=== PATIENT | female | born 1975 | race Two or more races ===

== ENCOUNTER 2019-02-09 11:27 | Inpatient (IN) | payer OTHER ==
[~2019-02-09] VITALS: Ht 170.2 cm; Wt 85.3 kg
[2019-02-09] MEDS ORDERED: GLIPIZIDE5 MG ORAL (11:33)
[2019-02-09] MEDS ORDERED: METFORMIN HCL500 M1 ORAL (11:33)
[2019-02-09] MEDS ORDERED: Morphine Sulfate 4mg/ml Inj (IV USE ONLY) IVP ONE (11:45)
--- NOTE | 2019-02-09 11:55 | Emergency Room Report ---
History of Present Illness General Chief Complaint: Generalized Weakness Source: Patient, EMS Present Illness HPI Patient presents with weakness. She is unable to ambulate since Tuesday. She was seen by her orthopedic doctor because she has metastasis to her right leg. She has severe pain there when she attempts to ambulate. It somewhat better when she is recumbent. She is unable to weight-bare. She has been able to eat but her appetite is been poor. She denies any fevers or chills. There is no melena or hematochezia. She feels occasionally nauseated. When she is attempting to ambulate localized to the right proximal fibula. She denies calf pain or edema. She feels discouraged about lack of ability to care for herself at home. Treatment at [facility]. No fevers, chills, sore throat, chest pain, palpitations, pain is rated 8/10 vomiting, diarrhea, dysuria, abdominal pain, shortness of breath, rashes, visual changes, dizziness, headache. Allergies: Coded Allergies: No Known Allergies (Unverified , 02/09/19) Patient History Past Medical History: see triage record Social History: Denies: alcohol use, drug use Social History Narrative Lives with her 23-year-old son Reviewed Nursing Documentation: PMH: Agreed; PSxH: Agreed Nursing Documentation-PMH Past Medical History: No History, Except For Hx Diabetes: Yes Hx Cancer: Yes Review of Systems All Other Systems: negative except mentioned in HPI Physical Exam Vital Signs Date Time Temp Pulse Resp B/P (MAP) Pulse Ox O2 Delivery O2 Flow Rate FiO2 02/09/19 11:27 98.6 103 16 144/76 (98) 98 Room Air Sp02 EP Interpretation: reviewed, normal General Appearance: no apparent distress, alert, GCS 15, non-toxic, other - Frail and pale Head: normocephalic Eyes: bilateral eye normal inspection, bilateral eye PERRL, bilateral eye EOMI ENT: moist mucus membranes Neck: supple Respiratory: lungs clear, normal breath sounds Cardiovascular #1: regular rate, rhythm Cardiovascular #2: 2+ radial (R), 2+ dorsalis pedis (R) Gastrointestinal: normal inspection, normal bowel sounds, non tender, no mass, non-distended Genitourinary: no CVA tenderness Musculoskeletal: back normal, other - Right lower leg tenderness also involves calf mainly right proximal fibula, Neurologic: alert, oriented x3, distal neuro normal, grossly normal Psychiatric: depressed affect Skin: no rash, other - [facility] Medical Decision Making Diagnostic Impression: Primary Impression: Hypercalcemia Additional Impressions: Elevated lactic acid level Metastatic cancer Pathologic fracture Qualified Codes: M84.563K - Pathological fracture in neoplastic disease, right fibula, subsequent encounter for fracture with nonunion ER Course Patient presents with weakness with a history of metastatic endometrial cancer with right leg pain and inability to ambulate. Differential includes bone metastasis, DVT, occult infection, electrolyte imbalance, depression amongst others. Patient evaluated with EKG, labs, x-ray of right tib-fib and chest x- ray, venous plethysmography leg. Treatment with gentle IV hydration. Also analgesics will be administered. The fact is significant. That the patient cannot ambulate consideration for admission to the hospital and transferred rehab is undertaken. EKG without injury. Chest x-ray clear. Right hip with pathologic fracture right proximal fibula. Labs with normal CBC with low H&H. CMP with elevated calcium. Lactate 2.6. Calcium and lactic acid called high. Ionized calcium ordered. NS and lasix ordered. Contact Dr. Butts for admission. Pain improved but muscle spasms of back. Toradol ordered. Social service consult ordered. Laboratory Tests Test 02/09/19 12:30 02/09/19 13:40 02/09/19 18:45 White Blood Count 8.1 K/UL (4.8-10.8) Red Blood Count 3.54 M/UL (4.20-5.40) L Hemoglobin 11.0 G/DL (12.0-16.0) L Hematocrit 32.8 % (37.0-47.0) L Mean Corpuscular Volume 93 FL (80-99) Mean Corpuscular Hemoglobin 31.0 PG (27.0-31.0) Mean Corpuscular Hemoglobin Concent 33.5 G/DL (32.0-36.0) Red Cell Distribution Width 12.1 % (11.6-14.8) Platelet Count 148 K/UL (150-450) L Mean Platelet Volume 5.6 FL (6.5-10.1) L Neutrophils (%) (Auto) % (45.0-75.0) Lymphocytes (%) (Auto) % (20.0-45.0) Monocytes (%) (Auto) % (1.0-10.0) Eosinophils (%) (Auto) % (0.0-3.0) Basophils (%) (Auto) % (0.0-2.0) Differential Total Cells Counted 100 Neutrophils % (Manual) 90 % (45-75) H Lymphocytes % (Manual) 5 % (20-45) L Monocytes % (Manual) 5 % (1-10) Eosinophils % (Manual) 0 % (0-3) Basophils % (Manual) 0 % (0-2) Band Neutrophils 0 % (0-8) Platelet Estimate Decreased L Platelet Morphology Normal Red Blood Cell Morphology Normal Prothrombin Time 10.0 SEC (9.30-11.50) Prothrombin Time INR 0.9 (0.9-1.1) PTT 23 SEC (23-33) Urine Color Pale yellow Urine Appearance Clear Urine pH 7 (4.5-8.0) Urine Specific [place] 1.010 (1.005-1.035) Urine Protein Negative (NEGATIVE) Urine Glucose (UA) Negative (NEGATIVE) Urine Ketones Negative (NEGATIVE) Urine Blood Negative (NEGATIVE) Urine Nitrite Negative (NEGATIVE) Urine Bilirubin Negative (NEGATIVE) Urine Urobilinogen Normal MG/DL (0.0-1.0) Urine Leukocyte Esterase Negative (NEGATIVE) Sodium Level 140 MMOL/L (136-145) 142 MMOL/L (136-145) Potassium Level 3.9 MMOL/L (3.5-5.1) 3.5 MMOL/L (3.5-5.1) Chloride Level 102 MMOL/L (98-107) 101 MMOL/L (98-107) Carbon Dioxide Level 30 MMOL/L (21-32) 32 MMOL/L (21-32) Anion Gap 8 mmol/L (5-15) 9 mmol/L (5-15) Blood Urea Nitrogen 20 mg/dL (7-18) H 22 mg/dL (7-18) H Creatinine 0.7 MG/DL (0.55-1.30) 0.9 MG/DL (0.55-1.30) Estimate Glomerular Filtration Rate > 60 mL/min (>60) > 60 mL/min (>60) Glucose Level 136 MG/DL (74-106) H 235 MG/DL (74-106) #H Lactic Acid Level 2.60 mmol/L (0.4-2.0) H 2.00 mmol/L (0.4-2.0) Calcium Level 13.4 MG/DL (8.5-10.1) *H 13.0 MG/DL (8.5-10.1) H Magnesium Level 1.0 MG/DL (1.8-2.4) L Total Bilirubin 0.2 MG/DL (0.2-1.0) Aspartate Amino Transferase (AST) 36 U/L (15-37) Alanine Aminotransferase (ALT) 19 U/L (12-78) Alkaline Phosphatase 104 U/L (46-116) Total Creatine Kinase 86 U/L (26-308) Troponin I 0.000 ng/mL (0.000-0.056) Pro-B-Type Natriuretic Peptide 70 pg/mL (0-125) Total Protein 8.1 G/DL (6.4-8.2) Albumin 3.3 G/DL (3.4-5.0) L Globulin 4.8 g/dL Albumin/Globulin Ratio 0.7 (1.0-2.7) L Lipase 113 U/L (73-393) Ionized Calcium (Measured) 1.37 mmol/L (1.10-1.35) H Erythrocyte Sedimentation Rate 75 MM/HR (0-20) H EKG Diagnostic Results Rate: normal Rhythm: NSR ST Segments: no acute changes Rhythm Strip Diag. Results EP Interpretation: yes Rhythm: NSR, no PVC's, no ectopy Chest X-Ray Diagnostic Results Chest X-Ray Diagnostic Results : Chest X-Ray Ordered: Yes # of Views/Limited/Complete: 1 View Indication: Other EP Interpretation: Yes Interpretation: no consolidation, no effusion, no pneumothorax, other - Poor inspiration Impression: No acute disease Electronically Signed by: Electronically signed by Jose Rafael Aguilera MD Other X-Ray Diagnostic Results Other X-Ray Diagnostic Results : X-Ray ordered: R tib fib # of Views/Limited Vs Complete: 4 View Indication: Other EP Interpretation: Yes Interpretation: no dislocation, no soft tissue swelling, other - metastatic disease fibula Impression: Other Electronically Signed by: Electronically signed by Jose Rafael Aguilera MD CT/MRI/US Diagnostic Results CT/MRI/US Diagnostic Results : Imaging Test Ordered: Venous duplex Impression No DVT Last Vital Signs Date Time Temp Pulse Resp B/P (MAP) Pulse Ox O2 Delivery O2 Flow Rate FiO2 02/09/19 17:06 98.1 78 20 134/78 99 Room Air Status: improved Disposition: ADMITTED INPATIENT Condition: Serious Jose Rafael Aguilera MD Feb 09, 2019 11:55
--- NOTE | 2019-02-09 12:45 | NUR ---
ED Nurse Note: Patient came by ambulance due to generalized muscle weakness since yesterday. Patient reports pain in lower abdomen and left leg /10. Patient reports having endometriosis cancer and started radiation therapy. VSS. Son is at bedside. Fr. 16 Cuadra catheter inserted, draining well to gravity. IV established on Right wrist 22G, patent and asymptomatic. Blood/urine collected and sent to lab.
[2019-02-09 13:06] LABS: HEMATOCRIT 32.8 % (37.0-47.0); MEAN CORPUSCULAR VOLUME 93 FL (80-99); PLATELET COUNT 148 K/UL (150-450); RED BLOOD COUNT 3.54 M/UL (4.20-5.40); RED CELL DISTRIBUTION WIDTH 12.1 % (11.6-14.8); WHITE BLOOD COUNT 8.1 K/UL (4.8-10.8)
[2019-02-09 13:20] VITALS: BP 144/76
[2019-02-09 13:22] LABS: INR 0.9 (0.9-1.1)
[2019-02-09 13:28] LABS: ALANINE AMINOTRANSFERASE 19 U/L (12-78); ALBUMIN 3.3 G/DL (3.4-5.0); ALBUMIN/GLOBULIN RATIO 0.7 (1.0-2.7); ALKALINE PHOSPHATASE 104 U/L (46-116); ANION GAP 8 mmol/L (5-15); ASPARTATE AMINO TRANSFERASE 36 U/L (15-37); BILIRUBIN,TOTAL 0.2 MG/DL (0.2-1.0); BLOOD UREA NITROGEN 20 mg/dL (7-18); CARBON DIOXIDE 30 MMOL/L (21-32); CHLORIDE 102 MMOL/L (98-107); CREATINE KINASE 86 U/L (26-308); CREATININE 0.7 MG/DL (0.55-1.30); POTASSIUM 3.9 MMOL/L (3.5-5.1); SODIUM 140 MMOL/L (136-145)
[2019-02-09 13:30] LABS: CALCIUM 13.4 MG/DL (8.5-10.1)
--- NOTE | 2019-02-09 13:41 | Diagnostic Imaging Report ---
Indication: Bilateral leg pain Technique: Grayscale and duplex images of the bilateral lower extremity veins. Comparison: none Findings: Bilaterally, grayscale and duplex images demonstrate no evidence of intraluminal thrombus. Normal phasic Doppler waveforms, demonstrating normal augmentation response and no evidence of valvular insufficiency. Normal compressibility. Impression: Negative for lower extremity deep venous thrombosis bilaterally
[2019-02-09 14:17] LABS: APPEARANCE,URINE CLEAR; BILIRUBIN, URINE NEGATIVE (NEGATIVE); COLOR,URINE PALE YELLOW; GLUCOSE, URINE (UA) NEGATIVE (NEGATIVE); KETONES,URINE NEGATIVE (NEGATIVE); LEUKOCYTE ESTERASE ,URINE NEGATIVE (NEGATIVE); NITRITE,URINE NEGATIVE (NEGATIVE); PH,URINE 7 (4.5-8.0); PROTEIN,URINE NEGATIVE (NEGATIVE); UROBILINOGEN,URINE NORMAL MG/DL (0.0-1.0)
--- NOTE | 2019-02-09 14:30 | Diagnostic Imaging Report ---
Indication: Reason For Exam: PAIN Technique: 2 views of the right tibia and fibula Comparison: none Findings: There is an osteolytic lesion of the proximal fibular shaft. This demonstrates a comminuted pathologic fracture, anteriorly displaced by about one bone width. No tibial fracture demonstrated. Impression: Positive for osteolytic lesion of the proximal fibula with pathologic fracture. Per discussion with referring physician, patient has history of metastatic carcinoma to this location
--- NOTE | 2019-02-09 14:31 | Diagnostic Imaging Report ---
Indication: Chest pain Technique: One view of the chest Comparison: none Findings: Exam is hypoventilatory, with bilateral basilar atelectatic changes. Lungs and pleural spaces are otherwise clear. The heart is upper limits of normal in size. Impression: Hypoventilatory exam with basilar atelectatic changes.
[2019-02-09] MEDS ORDERED: Ketorolac 30mg Inj IV ONE (15:30)
--- NOTE | 2019-02-09 16:19 | NUR ---
ED Nurse Note: Report given to JOSE ELIAS Sharp on 4E. Will redraw blood for LA and send out before transferring patient to floor.
--- NOTE | 2019-02-09 16:19 | NUR ---
NURSE NOTES: Report received from JOSE ELIAS Stock[place], from ED.
[2019-02-09] MEDS ORDERED: HYDROcodone/Acetamin 10/325 tab ORAL PRN (17:30)
[2019-02-09] MEDS ORDERED: HYDROcodone/Acetamin 5/325 tab ORAL PRN (17:30)
--- NOTE | 2019-02-09 18:40 | NUR ---
NURSE NOTES: Transferred pt to 212-1 in Tele. Report given to JOSE ELIAS Andrade.
--- NOTE | 2019-02-09 18:49 | NUR ---
NURSE NOTES: Rcvd pt from 4E rn Leonor Campuzano .. pt has youth nutritional monitor on, Ox4 calm and cooperative.
--- NOTE | 2019-02-09 19:07 | History and Physical ---
History of Present Illness General Date patient seen: Feb 09, 2019 Reason for Hospitalization: Hypercalcemia of malignancy Present Illness HPI This is a 43-year-old female with a past medical history of diabetes mellitus type 2, stage IV endometrial cancer with metastases to bones, liver, and diaphragm, pathologic right fibular fracture. Currently pending outpatient work -up for chemotherapy. The patient presents with worsening fatigue, and bone pain for the past week. She states that the pain is all over her body, 8 out of 10, constant. She denies any recent illnesses, fever, chills, cough, shortness of breath. She denies any recent trauma to her right leg. Patient states that she saw orthopedic surgery this past Tuesday regarding the new pathologic fracture of her right fibula. He did not recommend any casting or nonweightbearing status. The ER the patient had a temperature of 98.6 blood pressure 144/76 pulse 7884 respirations 15 saturating 90% on room air. WBC 8.1 hemoglobin 11 platelets 148. Calcium elevated at 13.4, lactate 2.6, ionized calcium 1.37. Serum creatinine 0.7, potassium 3.9. Troponin negative. Bilateral lower extremity venous Doppler negative for DVT. Chest x-ray negative. X-ray of tib-fib shows osteolytic lesion of proximal fibula likely a pathologic fracture. EKG showed normal sinus rhythm. Magnesium was low at 1.0. Allergies: Coded Allergies: No Known Allergies (Unverified , 02/09/19) Medication History Scheduled Glipizide* (Glipizide*), Unknown Dose ORAL BIDAC, (Reported) Metformin Hcl* (Metformin Hcl*), Unknown Dose ORAL TWICE A DAY, (Reported) Patient History Healthcare decision maker Resuscitation status Full code Advanced Directive on File Review of Systems Constitutional: Denies: see HPI, chills, sweats, fever, malaise, weakness, other Eye: Denies: see HPI, eye pain, blurred vision, tearing, double vision, nose pain, nose congestion, acuity changes, discharge, other ENT: Denies: see HPI, ear pain, ear discharge, nose pain, nose congestion, throat pain, throat swelling, mouth pain, hearing loss, nasal discharge, other Respiratory: Denies: see HPI, cough, orthopnea, shortness of breath, stridor, wheezing, LAWLER, sputum, other Cardiovascular: Denies: see HPI, chest pain, edema, palpitations, syncope, PND , other Gastrointestinal: Denies: see HPI, abdominal pain, constipation, diarrhea, nausea, vomiting, melena, hematemesis, other Genitourinary: Denies: see HPI, discharge, dysuria, frequency, hematuria, pain , retention, incontinence, urgency, vag bleed/dc, other Musculoskeletal: Reports: joint pain, muscle pain; Denies: see HPI, back pain, gout, joint swelling, muscle stiffness, other Skin: Denies: see HPI, rash, change in color, change in hair/nails, dryness, lesions, other Psychiatric: Denies: see HPI, prior hx, anxiety, depressed feelings, emotional problems, SI, HI, hallucinations, other Neurological: Denies: see HPI, headache, numbness, paresthesia, seizure, tingling, tremors, focal weakness, syncope, dizziness, other Endocrine: Denies: see HPI, excessive sweating, flushing, intolerance to temperature, increased thirst, increased urine, unexplained weight loss, other Hematologic/Lymphatic: Denies: see HPI, anemia, blood clots, easy bleeding, easy bruising, swollen glands, diathesis, other Physical Exam General Appearance: WD/WN, no apparent distress, alert Lines, tubes and drains: peripheral HEENT: normocephalic, atraumatic, anicteric, mucous membranes moist Neck: non-tender, normal alignment, supple, normal inspection Respiratory/Chest: chest wall non-tender, lungs clear, normal breath sounds Cardiovascular/Chest: normal peripheral pulses, normal rate, regular rhythm, no JVD Abdomen: normal bowel sounds, non tender, soft, no organomegaly, no mass Extremities: normal range of motion, other - Some tenderness to palpation of right lateral leg. No deformities seen. Trace edema bilaterally. Skin Exam: normal pigmentation, warm/dry Neurologic: special assets officer II-XII grossly normal, no motor/sensory deficits, alert, oriented x 3, responsive Lymphatic: anterior cervical - No lymphadenopathy Musculoskeletal: normal muscle bulk, no effusion Last 24 Hour Vital Signs Date Time Temp Pulse Resp B/P (MAP) Pulse Ox O2 Delivery O2 Flow Rate FiO2 02/09/19 17:06 98.1 78 20 134/78 99 Room Air 02/09/19 13:30 84 20 Room Air 02/09/19 13:20 98.6 78 15 144/76 99 Room Air 02/09/19 12:50 98.6 02/09/19 12:50 98.6 02/09/19 11:27 98.6 103 16 144/76 (98) 98 Room Air Laboratory Tests Test 02/09/19 12:30 02/09/19 13:40 White Blood Count 8.1 K/UL (4.8-10.8) Red Blood Count 3.54 M/UL (4.20-5.40) L Hemoglobin 11.0 G/DL (12.0-16.0) L Hematocrit 32.8 % (37.0-47.0) L Mean Corpuscular Volume 93 FL (80-99) Mean Corpuscular Hemoglobin 31.0 PG (27.0-31.0) Mean Corpuscular Hemoglobin Concent 33.5 G/DL (32.0-36.0) Red Cell Distribution Width 12.1 % (11.6-14.8) Platelet Count 148 K/UL (150-450) L Mean Platelet Volume 5.6 FL (6.5-10.1) L Neutrophils (%) (Auto) % (45.0-75.0) Lymphocytes (%) (Auto) % (20.0-45.0) Monocytes (%) (Auto) % (1.0-10.0) Eosinophils (%) (Auto) % (0.0-3.0) Basophils (%) (Auto) % (0.0-2.0) Differential Total Cells Counted 100 Neutrophils % (Manual) 90 % (45-75) H Lymphocytes % (Manual) 5 % (20-45) L Monocytes % (Manual) 5 % (1-10) Eosinophils % (Manual) 0 % (0-3) Basophils % (Manual) 0 % (0-2) Band Neutrophils 0 % (0-8) Platelet Estimate Decreased L Platelet Morphology Normal Red Blood Cell Morphology Normal Prothrombin Time 10.0 SEC (9.30-11.50) Prothromb Time International Ratio 0.9 (0.9-1.1) Activated Partial Thromboplast Time 23 SEC (23-33) Urine Color Pale yellow Urine Appearance Clear Urine pH 7 (4.5-8.0) Urine Specific [place] 1.010 (1.005-1.035) Urine Protein Negative (NEGATIVE) Urine Glucose (UA) Negative (NEGATIVE) Urine Ketones Negative (NEGATIVE) Urine Blood Negative (NEGATIVE) Urine Nitrite Negative (NEGATIVE) Urine Bilirubin Negative (NEGATIVE) Urine Urobilinogen Normal MG/DL (0.0-1.0) Urine Leukocyte Esterase Negative (NEGATIVE) Sodium Level 140 MMOL/L (136-145) Potassium Level 3.9 MMOL/L (3.5-5.1) Chloride Level 102 MMOL/L (98-107) Carbon Dioxide Level 30 MMOL/L (21-32) Anion Gap 8 mmol/L (5-15) Blood Urea Nitrogen 20 mg/dL (7-18) H Creatinine 0.7 MG/DL (0.55-1.30) Estimat Glomerular Filtration Rate > 60 mL/min (>60) Glucose Level 136 MG/DL (74-106) H Lactic Acid Level 2.60 mmol/L (0.4-2.0) H Calcium Level 13.4 MG/DL (8.5-10.1) *H Magnesium Level 1.0 MG/DL (1.8-2.4) L Total Bilirubin 0.2 MG/DL (0.2-1.0) Aspartate Amino Transf (AST/SGOT) 36 U/L (15-37) Alanine Aminotransferase (ALT/SGPT) 19 U/L (12-78) Alkaline Phosphatase 104 U/L (46-116) Total Creatine Kinase 86 U/L (26-308) Troponin I 0.000 ng/mL (0.000-0.056) Pro-B-Type Natriuretic Peptide 70 pg/mL (0-125) Total Protein 8.1 G/DL (6.4-8.2) Albumin 3.3 G/DL (3.4-5.0) L Globulin 4.8 g/dL Albumin/Globulin Ratio 0.7 (1.0-2.7) L Lipase 113 U/L (73-393) Ionized Calcium (Measured) 1.37 mmol/L (1.10-1.35) H Height (Feet): 5 Height (Inches): 7.00 Weight (Pounds): 188 Medications Current Medications Medications (Trade) Dose Ordered Sig/García Route PRN Reason Start Time Stop Time Status Last Admin Dose Admin Acetaminophen/ Hydrocodone Bitart ([place] ) 1 tab Q6H PRN ORAL severe pain 02/09/19 19:00 02/16/19 18:59 Acetaminophen/ Hydrocodone Bitart ([place] 5/325) 1 tab Q6H PRN ORAL pain 1-6 02/09/19 19:00 02/16/19 18:59 Calcitonin [place] (Miacalcin) 1 sprays DAILY NASAL 02/10/19 09:00 03/11/19 17:14 Dextrose (Dextrose 50%) 25 ml Q30M PRN IV Hypoglycemia 02/09/19 19:00 03/11/19 17:29 Dextrose (Dextrose 50%) 50 ml Q30M PRN IV Hypoglycemia 02/09/19 19:00 03/11/19 17:29 Heparin Sodium (Porcine) (Heparin 5000 units/ml) 5,000 units EVERY 8 HOURS SUBQ 02/09/19 22:00 03/11/19 21:59 Magnesium Sulfate 100 ml @ 100 mls/hr Q1H IVPB 02/09/19 19:15 02/09/19 23:14 UNV Sodium Chloride 1,000 ml @ 300 mls/hr Q3H20M IV 02/09/19 19:00 03/11/19 11:44 Assessment/Plan Problem List: (1) Hypercalcemia of malignancy ICD Codes: E83.52 - Hypercalcemia SNOMED: 28765281 (2) Hypercalcemia ICD Codes: E83.52 - Hypercalcemia SNOMED: 07716789 (3) Diabetes mellitus type 2 in obese ICD Codes: E11.69 - Type 2 diabetes mellitus with other specified complication ; E66.9 - Obesity, unspecified SNOMED: 75944120 (4) Metastatic cancer ICD Codes: C79.9 - Secondary malignant neoplasm of unspecified site SNOMED: 365353820 (5) Elevated lactic acid level ICD Codes: R79.89 - Other specified abnormal findings of blood chemistry SNOMED: 1224164 (6) Hypomagnesemia ICD Codes: E83.42 - Hypomagnesemia SNOMED: 013860101 (7) Pathologic fracture ICD Codes: M84.40XA - Pathological fracture, unspecified site, initial encounter for fracture SNOMED: 632879526 Qualifiers: Assessment/Plan: This is a 43-year-old female with a history of stage IV endometrial cancer presenting with hypercalcemia of malignancy. #Hypercalcemia of malignancy -Admit to telemetry -Continue to trend calcium every 8 hours -Normal saline at 300 cc an hour with a goal urine output of 100 to 150 cc/h -Lasix as needed for shortness of breath - intranasal calcitonin daily -Appreciate nephrology consultation: Dr. Polk -[place] 5 and [place] 10 for pain control Q6hr PRN, morphine IV Q3hr for breakthrough pain #Elevated lactic acid likely secondary to underlying malignancy > Outside oncologist Dr. Mcclelland >PCP Dr. Fitzgerald -Continue to trend lactate -Continue to monitor for signs and symptoms of infection. None currently. -Continue fluids as above #Pathological right fibula fracture, chronic -Follows with orthopedic surgery as outpatient -pain control as above #Hypomagnesemia -replete #Diabetes mellitus type 2 -hold home glipizide and metformin -Accu-Cheks before meals and at bedtime -Sliding scale insulin FENPPX DVTPPX: heparin sbq GI PPX: None Fluids: As above Diet: Regular Lines: none PT/OT: Pending Code status: Full Dispo: Home after resolution of above issues Reason for Continued Hospitalization: Hypercalcemia 73 minutes spent on this encounter. Discussed with RN, Patient, and nephrology. > 50% spent on counseling and care coordination. Time of note may not reflect time patient was seen. Steven Cantrell D.O. Feb 09, 2019 19:07
[2019-02-09 19:34] LABS: ANION GAP 9 mmol/L (5-15); BLOOD UREA NITROGEN 22 mg/dL (7-18); CARBON DIOXIDE 32 MMOL/L (21-32); CHLORIDE 101 MMOL/L (98-107); CREATININE 0.9 MG/DL (0.55-1.30); POTASSIUM 3.5 MMOL/L (3.5-5.1); SODIUM 142 MMOL/L (136-145)
[2019-02-09 20:00] VITALS: BP 110/63
--- NOTE | 2019-02-09 20:30 | NUR ---
NURSE NOTES: Patient c/o feeling warm and flushing. Magnesium Sulfate 1 gram running at 100cc/hour. Infusion stopped and Charge nurse made aware. Spoke with pharmacist and was told that flushing is a common and temporary reaction to Magnesium sulfate. Pharmacist recommended to lower the rate to 50cc/hour instead of 100cc/hour. Will continue to monitor.
[2019-02-09] MEDS: Heparin 5000 units/ml inj SUBQ SCH (22:00)
[2019-02-09] MEDS ORDERED: Heparin 5000 units/ml inj SUBQ SCH (22:00)
[2019-02-09] MEDS ORDERED: Pamidronate Disodium Inj 60 MG in Sodium Chloride 550 ML IVPB SCH (22:00)
[2019-02-10] VITALS: BP 124/71
[2019-02-10 00:45] LABS: ANION GAP 8 mmol/L (5-15); BLOOD UREA NITROGEN 22 mg/dL (7-18); CALCIUM 11.8 MG/DL (8.5-10.1); CARBON DIOXIDE 30 MMOL/L (21-32); CHLORIDE 103 MMOL/L (98-107); CREATININE 0.7 MG/DL (0.55-1.30); POTASSIUM 3.6 MMOL/L (3.5-5.1); SODIUM 141 MMOL/L (136-145)
--- NOTE | 2019-02-10 01:00 | NUR ---
NURSE NOTES: Magnesium sulfate running at 50cc/hour. Patient tolerated. No adverse reaction noted.
[2019-02-10 04:00] VITALS: BP 126/74
[2019-02-10] MEDS ORDERED: Pamidronate Disodium Inj 60 MG in Sodium Chloride 550 ML IVPB SCH (04:00)
[2019-02-10] MEDS: HYDROcodone/Acetamin 10/325 tab ORAL PRN ×2 (04:54→12:51)
[2019-02-10] MEDS: Heparin 5000 units/ml inj SUBQ SCH ×3 (05:21→22:41)
--- NOTE | 2019-02-10 07:30 | NUR ---
NURSE NOTES: Received report from JOSE ELIAS Bolden. Patient is resting in bed, in stable condition. No s/sx of SOB, breathing is even and unlabored. Bed is in lowest position, brakes engaged. Denies any presence of pain or discomfort at this time. Call light is kept within easy reach. Will continue to monitor patient.
[2019-02-10 07:40] LABS: BASOPHILS % (AUTO) 1.3 % (0.0-2.0); EOSINOPHILS % (AUTO) 1.5 % (0.0-3.0); HEMATOCRIT 28.2 % (37.0-47.0); HEMOGLOBIN 9.6 G/DL (12.0-16.0); LYMPHOCYTES % (AUTO) 6.6 % (20.0-45.0); MEAN CORPUSCULAR VOLUME 92 FL (80-99); MONOCYTES % (AUTO) 11.2 % (1.0-10.0); NEUTROPHILS % (AUTO) 79.5 % (45.0-75.0); PLATELET COUNT 117 K/UL (150-450); RED BLOOD COUNT 3.05 M/UL (4.20-5.40); RED CELL DISTRIBUTION WIDTH 12.4 % (11.6-14.8); WHITE BLOOD COUNT 5.1 K/UL (4.8-10.8)
[2019-02-10 08:00] VITALS: BP 111/69
[2019-02-10 08:01] LABS: ALANINE AMINOTRANSFERASE 20 U/L (12-78); ALBUMIN 2.5 G/DL (3.4-5.0); ALBUMIN/GLOBULIN RATIO 0.6 (1.0-2.7); ALKALINE PHOSPHATASE 86 U/L (46-116); ANION GAP 7 mmol/L (5-15); ASPARTATE AMINO TRANSFERASE 31 U/L (15-37); BILIRUBIN,TOTAL 0.2 MG/DL (0.2-1.0); BLOOD UREA NITROGEN 17 mg/dL (7-18); CALCIUM 11.1 MG/DL (8.5-10.1); CARBON DIOXIDE 29 MMOL/L (21-32); CHLORIDE 106 MMOL/L (98-107); CREATININE 0.6 MG/DL (0.55-1.30); POTASSIUM 3.4 MMOL/L (3.5-5.1); SODIUM 141 MMOL/L (136-145)
--- NOTE | 2019-02-10 08:35 | General Progress Note ---
Assessment/Plan Problem List: (1) Diabetes mellitus type 2 in obese ICD Codes: E11.69 - Type 2 diabetes mellitus with other specified complication ; E66.9 - Obesity, unspecified SNOMED: 25091166 (2) Hypercalcemia of malignancy ICD Codes: E83.52 - Hypercalcemia SNOMED: 11825212 (3) Hypomagnesemia ICD Codes: E83.42 - Hypomagnesemia SNOMED: 842039379 (4) Metastatic cancer ICD Codes: C79.9 - Secondary malignant neoplasm of unspecified site SNOMED: 835735989 (5) Pathologic fracture ICD Codes: M84.40XA - Pathological fracture, unspecified site, initial encounter for fracture SNOMED: 999412607 Qualifiers: Qualified Codes: M84.563K - Pathological fracture in neoplastic disease, right fibula, subsequent encounter for fracture with nonunion (6) Elevated lactic acid level ICD Codes: R79.89 - Other specified abnormal findings of blood chemistry SNOMED: 3175500 (7) Hypercalcemia ICD Codes: E83.52 - Hypercalcemia SNOMED: 42361938 Status: stable Assessment/Plan: This is a 43-year-old female with a history of stage IV endometrial cancer presenting with hypercalcemia of malignancy. #Hypercalcemia of malignancy -Admit to telemetry -Continue to trend calcium every 8 hours -Normal saline at 300 cc an hour with a goal urine output of 100 to 150 cc/h -Lasix as needed for shortness of breath - intranasal calcitonin daily -Appreciate nephrology consultation: Dr. Polk. S/p Aredia 60 mg on 02/09, will give another 30 mg today 01/21 -[place] 5 and [place] 10 for pain control Q6hr PRN, morphine IV Q3hr for breakthrough pain -Heme/onc consult with DR. Wells #Elevated lactic acid likely secondary to underlying malignancy > Outside oncologist Dr. Mcclelland >PCP Dr. Fitzgerald -Continue to trend lactate -Continue to monitor for signs and symptoms of infection. None currently. -Continue fluids as above #Pathological right fibula fracture, chronic -Follows with orthopedic surgery as outpatient. Dr. Guy. -Obtain ortho consult as she is non weight baring now -pain control as above #Hypomagnesemia -replete #Diabetes mellitus type 2 -hold home glipizide and metformin -Accu-Cheks before meals and at bedtime -Sliding scale insulin FENPPX DVTPPX: heparin sbq GI PPX: None Fluids: As above Diet: Regular Lines: none PT/OT: Pending Code status: Full Dispo: Home after resolution of above issues Reason for Continued Hospitalization: Hypercalcemia 40 minutes spent on this encounter. Discussed with RN, Patient, and nephrology. > 50% spent on counseling and care coordination. Time of note may not reflect time patient was seen. Subjective Date patient seen: Feb 10, 2019 Constitutional: Reports: no symptoms, chills, diaphoresis, fever, malaise, weakness, other HEENT: Denies: no symptoms, eye pain, blurred vision, tearing, double vision, ear pain, ear discharge, nose pain, nose congestion, throat pain, throat swelling, mouth pain, mouth swelling, other Cardiovascular: Denies: no symptoms, chest pain, edema, irregular heart rate, lightheadedness, palpitations, syncope, other Respiratory: Denies: no symptoms, cough, orthopnea, shortness of breath, SOB with excertion, SOB at rest, sputum, stridor, wheezing, other Gastrointestinal/Abdominal: Denies: no symptoms, abdomen distended, abdominal pain, black stools, tarry stools, blood in stool, constipated, diarrhea, difficulty swallowing, nausea, poor appetite, poor fluid intake, rectal bleeding , vomiting, other Genitourinary: Denies: no symptoms, burning, discharge, frequency, flank pain, hematuria, incontinence, pain, urgency, other Neurologic/Psychiatric: Reports: no symptoms, anxiety, depressed, emotional problems, headache, numbness, paresthesia, pre-existing deficit, seizure, tingling, tremors, weakness, other Endocrine: Denies: no symptoms, excessive sweating, flushing, intolerance to cold, intolerance to heat, increased hunger, increased thirst, increased urine, unexplained weight gain, unexplained weight loss, other Hematologic/Lymphatic: Denies: no symptoms, anemia, easy bleeding, easy bruising, other Allergies: Coded Allergies: No Known Allergies (Unverified , 02/09/19) Subjective seen and examined at bedside. alert and oriented x3 Has pain in the right leg. Says saw ortho Dr. Guy at [facility] who offered no intervention for her metastatic disease to the right leg. She has been unable to bear weight since 4 days prior to admission She is being treated for hypercalcemia Objective Last 24 Hour Vital Signs Date Time Temp Pulse Resp B/P (MAP) Pulse Ox O2 Delivery O2 Flow Rate FiO2 02/10/19 04:00 97.5 86 16 126/74 (91) 96 02/10/19 04:00 80 02/10/19 00:00 78 02/10/19 00:00 97.7 82 16 124/71 (88) 96 02/09/19 21:00 Room Air 02/09/19 20:00 Room Air 02/09/19 20:00 90 02/09/19 20:00 98.9 87 19 110/63 (79) 97 02/09/19 17:06 98.1 78 20 134/78 99 Room Air 02/09/19 13:30 84 20 Room Air 02/09/19 13:20 98.6 78 15 144/76 99 Room Air 02/09/19 12:50 98.6 02/09/19 12:50 98.6 02/09/19 11:27 98.6 103 16 144/76 (98) 98 Room Air Intake and Output 02/09/19 02/10/19 19:00 07:00 Intake Total 1000 ml Output Total 2600 ml 1400 ml Balance -1600 ml -1400 ml Intake IV Total 1000 ml Output Urine Total 2600 ml 1400 ml Laboratory Tests 02/09/19 12:30: White Blood Count 8.1, Red Blood Count 3.54L, Hemoglobin 11.0L, Hematocrit 32.8L , Mean Corpuscular Volume 93, Mean Corpuscular Hemoglobin 31.0, Mean Corpuscular Hemoglobin Concent 33.5, Red Cell Distribution Width 12.1, Platelet Count 148L, Mean Platelet Volume 5.6L, Neutrophils (%) (Auto) , Lymphocytes (%) (Auto) , Monocytes (%) (Auto) , Eosinophils (%) (Auto) , Basophils (%) (Auto) , Differential Total Cells Counted 100, Neutrophils % (Manual) 90H, Lymphocytes % (Manual) 5L, Monocytes % (Manual) 5, Eosinophils % (Manual) 0, Basophils % ( Manual) 0, Band Neutrophils 0, Platelet Estimate DecreasedL, Platelet Morphology Normal, Red Blood Cell Morphology Normal, Prothrombin Time 10.0, Prothromb Time International Ratio 0.9, Activated Partial Thromboplast Time 23, Urine Color Pale yellow, Urine Appearance Clear, Urine pH 7, Urine Specific [place] 1.010, Urine Protein Negative, Urine Glucose (UA) Negative, Urine Ketones Negative, Urine Blood Negative, Urine Nitrite Negative, Urine Bilirubin Negative, Urine Urobilinogen Normal, Urine Leukocyte Esterase Negative, Sodium Level 140, Potassium Level 3.9, Chloride Level 102, Carbon Dioxide Level 30, Anion Gap 8, Blood Urea Nitrogen 20H, Creatinine 0.7, Estimat Glomerular Filtration Rate > 60, Glucose Level 136H, Lactic Acid Level 2.60H, Calcium Level 13.4*H, Magnesium Level 1.0L, Total Bilirubin 0.2, Aspartate Amino Transf (AST/SGOT) 36, Alanine Aminotransferase (ALT/SGPT) 19, Alkaline Phosphatase 104 , Total Creatine Kinase 86, Troponin I 0.000, Pro-B-Type Natriuretic Peptide 70 , Total Protein 8.1, Albumin 3.3L, Globulin 4.8, Albumin/Globulin Ratio 0.7L, Lipase 113 02/09/19 13:40: Ionized Calcium (Measured) 1.37H 02/09/19 18:45: Sodium Level 142, Potassium Level 3.5, Chloride Level 101, Carbon Dioxide Level 32, Anion Gap 9, Blood Urea Nitrogen 22H, Creatinine 0.9, Estimat Glomerular Filtration Rate > 60, Glucose Level 235#H, Lactic Acid Level 2.00, Calcium Level 13.0H, Erythrocyte Sedimentation Rate 75H 02/10/19 00:13: Sodium Level 141, Potassium Level 3.6, Chloride Level 103, Carbon Dioxide Level 30, Anion Gap 8, Blood Urea Nitrogen 22H, Creatinine 0.7, Estimat Glomerular Filtration Rate > 60, Glucose Level 148H, Calcium Level 11.8H 02/10/19 07:22: White Blood Count 5.1, Red Blood Count 3.05L, Hemoglobin 9.6L, Hematocrit 28.2L , Mean Corpuscular Volume 92, Mean Corpuscular Hemoglobin 31.5H, Mean Corpuscular Hemoglobin Concent 34.1, Red Cell Distribution Width 12.4, Platelet Count 117L, Mean Platelet Volume 5.0L, Neutrophils (%) (Auto) 79.5H, Lymphocytes (%) (Auto) 6.6L, Monocytes (%) (Auto) 11.2H, Eosinophils (%) (Auto) 1.5, Basophils (%) (Auto) 1.3, Sodium Level 141, Potassium Level 3.4L, Chloride Level 106, Carbon Dioxide Level 29, Anion Gap 7, Blood Urea Nitrogen 17, Creatinine 0.6, Estimat Glomerular Filtration Rate > 60, Glucose Level 157H, Uric Acid 5.4, Calcium Level 11.1H, Phosphorus Level 3.0, Magnesium Level 1.7L, Total Bilirubin 0.2, Aspartate Amino Transf (AST/SGOT) 31, Alanine Aminotransferase (ALT/SGPT) 20, Alkaline Phosphatase 86, C-Reactive Protein, Quantitative 5.0H, Pro-B-Type Natriuretic Peptide 120, Total Protein 6.4, Albumin 2.5L, Globulin 3.9, Albumin/Globulin Ratio 0.6L, Thyroid Stimulating Hormone (TSH) 1.271 Height (Feet): 5 Height (Inches): 7.00 Weight (Pounds): 188 Objective General Appearance: WD/WN, no apparent distress, alert Lines, tubes and drains: peripheral HEENT: normocephalic, atraumatic, anicteric, mucous membranes moist Neck: non-tender, normal alignment, supple, normal inspection Respiratory/Chest: chest wall non-tender, lungs clear, normal breath sounds Cardiovascular/Chest: normal peripheral pulses, normal rate, regular rhythm, no JVD Abdomen: normal bowel sounds, non tender, soft, no organomegaly, no mass Extremities: normal range of motion, other - Some tenderness to palpation of right lateral leg. No deformities seen. Trace edema bilaterally. Skin Exam: normal pigmentation, warm/dry Neurologic: sales developer II-XII grossly normal, no motor/sensory deficits, alert, oriented x 3, responsive Lymphatic: anterior cervical - No lymphadenopathy Musculoskeletal: normal muscle bulk, no effusion Micheal Rahman M.D. Feb 10, 2019 08:35
[2019-02-10] MEDS ORDERED: Pamidronate Disodium Inj 30 MG in Sodium Chloride 550 ML IVPB ONE (11:00)
[2019-02-10] MEDS: NovoLOG Insulin Flexpen SUBQ SCH ×3 (11:30→20:58)
--- NOTE | 2019-02-10 11:45 | Consultation ---
History of Present Illness General Chief Complaint: Generalized Weakness Present Illness Allergies: Coded Allergies: No Known Allergies (Unverified , 02/09/19) Medication History Scheduled Glipizide* (Glipizide*), Unknown Dose ORAL BIDAC, (Reported) Metformin Hcl* (Metformin Hcl*), Unknown Dose ORAL TWICE A DAY, (Reported) Patient History Healthcare decision maker Resuscitation status Full Code Advanced Directive on File Physical Exam Last 24 Hour Vital Signs Date Time Temp Pulse Resp B/P (MAP) Pulse Ox O2 Delivery O2 Flow Rate FiO2 02/10/19 09:00 Room Air 02/10/19 08:00 98.2 80 18 111/69 (83) 100 02/10/19 04:00 97.5 86 16 126/74 (91) 96 02/10/19 04:00 80 02/10/19 00:00 78 02/10/19 00:00 97.7 82 16 124/71 (88) 96 02/09/19 21:00 Room Air 02/09/19 20:00 Room Air 02/09/19 20:00 90 02/09/19 20:00 98.9 87 19 110/63 (79) 97 02/09/19 17:06 98.1 78 20 134/78 99 Room Air 02/09/19 13:30 84 20 Room Air 02/09/19 13:20 98.6 78 15 144/76 99 Room Air 02/09/19 12:50 98.6 02/09/19 12:50 98.6 Intake and Output 02/09/19 02/10/19 19:00 07:00 Intake Total 1000 ml Output Total 2600 ml 1400 ml Balance -1600 ml -1400 ml IV Total 1000 ml Output Urine Total 2600 ml 1400 ml Laboratory Tests Test 02/09/19 12:30 02/09/19 13:40 02/09/19 18:45 02/10/19 00:13 White Blood Count 8.1 K/UL (4.8-10.8) Red Blood Count 3.54 M/UL (4.20-5.40) L Hemoglobin 11.0 G/DL (12.0-16.0) L Hematocrit 32.8 % (37.0-47.0) L Mean Corpuscular Volume 93 FL (80-99) Mean Corpuscular Hemoglobin 31.0 PG (27.0-31.0) Mean Corpuscular Hemoglobin Concent 33.5 G/DL (32.0-36.0) Red Cell Distribution Width 12.1 % (11.6-14.8) Platelet Count 148 K/UL (150-450) L Mean Platelet Volume 5.6 FL (6.5-10.1) L Neutrophils (%) (Auto) % (45.0-75.0) Lymphocytes (%) (Auto) % (20.0-45.0) Monocytes (%) (Auto) % (1.0-10.0) Eosinophils (%) (Auto) % (0.0-3.0) Basophils (%) (Auto) % (0.0-2.0) Differential Total Cells Counted 100 Neutrophils % (Manual) 90 % (45-75) H Lymphocytes % (Manual) 5 % (20-45) L Monocytes % (Manual) 5 % (1-10) Eosinophils % (Manual) 0 % (0-3) Basophils % (Manual) 0 % (0-2) Band Neutrophils 0 % (0-8) Platelet Estimate Decreased L Platelet Morphology Normal Red Blood Cell Morphology Normal Prothrombin Time 10.0 SEC (9.30-11.50) Prothromb Time International Ratio 0.9 (0.9-1.1) Activated Partial Thromboplast Time 23 SEC (23-33) Urine Color Pale yellow Urine Appearance Clear Urine pH 7 (4.5-8.0) Urine Specific [place] 1.010 (1.005-1.035) Urine Protein Negative (NEGATIVE) Urine Glucose (UA) Negative (NEGATIVE) Urine Ketones Negative (NEGATIVE) Urine Blood Negative (NEGATIVE) Urine Nitrite Negative (NEGATIVE) Urine Bilirubin Negative (NEGATIVE) Urine Urobilinogen Normal MG/DL (0.0-1.0) Urine Leukocyte Esterase Negative (NEGATIVE) Sodium Level 140 MMOL/L (136-145) 142 MMOL/L (136-145) 141 MMOL/L (136-145) Potassium Level 3.9 MMOL/L (3.5-5.1) 3.5 MMOL/L (3.5-5.1) 3.6 MMOL/L (3.5-5.1) Chloride Level 102 MMOL/L (98-107) 101 MMOL/L (98-107) 103 MMOL/L (98-107) Carbon Dioxide Level 30 MMOL/L (21-32) 32 MMOL/L (21-32) 30 MMOL/L (21-32) Anion Gap 8 mmol/L (5-15) 9 mmol/L (5-15) 8 mmol/L (5-15) Blood Urea Nitrogen 20 mg/dL (7-18) H 22 mg/dL (7-18) H 22 mg/dL (7-18) H Creatinine 0.7 MG/DL (0.55-1.30) 0.9 MG/DL (0.55-1.30) 0.7 MG/DL (0.55-1.30) Estimat Glomerular Filtration Rate > 60 mL/min (>60) > 60 mL/min (>60) > 60 mL/min (>60) Glucose Level 136 MG/DL (74-106) H 235 MG/DL (74-106) #H 148 MG/DL (74-106) H Lactic Acid Level 2.60 mmol/L (0.4-2.0) H 2.00 mmol/L (0.4-2.0) Calcium Level 13.4 MG/DL (8.5-10.1) *H 13.0 MG/DL (8.5-10.1) H 11.8 MG/DL (8.5-10.1) H Magnesium Level 1.0 MG/DL (1.8-2.4) L Total Bilirubin 0.2 MG/DL (0.2-1.0) Aspartate Amino Transf (AST/SGOT) 36 U/L (15-37) Alanine Aminotransferase (ALT/SGPT) 19 U/L (12-78) Alkaline Phosphatase 104 U/L (46-116) Total Creatine Kinase 86 U/L (26-308) Troponin I 0.000 ng/mL (0.000-0.056) Pro-B-Type Natriuretic Peptide 70 pg/mL (0-125) Total Protein 8.1 G/DL (6.4-8.2) Albumin 3.3 G/DL (3.4-5.0) L Globulin 4.8 g/dL Albumin/Globulin Ratio 0.7 (1.0-2.7) L Lipase 113 U/L (73-393) Ionized Calcium (Measured) 1.37 mmol/L (1.10-1.35) H Erythrocyte Sedimentation Rate 75 MM/HR (0-20) H Test 02/10/19 07:22 White Blood Count 5.1 K/UL (4.8-10.8) Red Blood Count 3.05 M/UL (4.20-5.40) L Hemoglobin 9.6 G/DL (12.0-16.0) L Hematocrit 28.2 % (37.0-47.0) L Mean Corpuscular Volume 92 FL (80-99) Mean Corpuscular Hemoglobin 31.5 PG (27.0-31.0) H Mean Corpuscular Hemoglobin Concent 34.1 G/DL (32.0-36.0) Red Cell Distribution Width 12.4 % (11.6-14.8) Platelet Count 117 K/UL (150-450) L Mean Platelet Volume 5.0 FL (6.5-10.1) L Neutrophils (%) (Auto) 79.5 % (45.0-75.0) H Lymphocytes (%) (Auto) 6.6 % (20.0-45.0) L Monocytes (%) (Auto) 11.2 % (1.0-10.0) H Eosinophils (%) (Auto) 1.5 % (0.0-3.0) Basophils (%) (Auto) 1.3 % (0.0-2.0) Sodium Level 141 MMOL/L (136-145) Potassium Level 3.4 MMOL/L (3.5-5.1) L Chloride Level 106 MMOL/L (98-107) Carbon Dioxide Level 29 MMOL/L (21-32) Anion Gap 7 mmol/L (5-15) Blood Urea Nitrogen 17 mg/dL (7-18) Creatinine 0.6 MG/DL (0.55-1.30) Estimat Glomerular Filtration Rate > 60 mL/min (>60) Glucose Level 157 MG/DL (74-106) H Hemoglobin A1c 6.1 % (4.3-6.0) H Uric Acid 5.4 MG/DL (2.6-7.2) Calcium Level 11.1 MG/DL (8.5-10.1) H Phosphorus Level 3.0 MG/DL (2.5-4.9) Magnesium Level 1.7 MG/DL (1.8-2.4) L Total Bilirubin 0.2 MG/DL (0.2-1.0) Aspartate Amino Transf (AST/SGOT) 31 U/L (15-37) Alanine Aminotransferase (ALT/SGPT) 20 U/L (12-78) Alkaline Phosphatase 86 U/L (46-116) C-Reactive Protein, Quantitative 5.0 mg/dL (0.00-0.90) H Pro-B-Type Natriuretic Peptide 120 pg/mL (0-125) Total Protein 6.4 G/DL (6.4-8.2) Albumin 2.5 G/DL (3.4-5.0) L Globulin 3.9 g/dL Albumin/Globulin Ratio 0.6 (1.0-2.7) L Thyroid Stimulating Hormone (TSH) 1.271 uiU/mL (0.358-3.740) Height (Feet): 5 Height (Inches): 7.00 Weight (Pounds): 188 Medications Current Medications Medications (Trade) Dose Ordered Sig/García Route PRN Reason Start Time Stop Time Status Last Admin Dose Admin Acetaminophen/ Hydrocodone Bitart ([place] 10/325) 1 tab Q6H PRN ORAL severe pain 02/09/19 19:00 02/16/19 18:59 02/10/19 04:54 Acetaminophen/ Hydrocodone Bitart ([place] 5/325) 1 tab Q6H PRN ORAL pain 1-6 02/09/19 19:00 02/16/19 18:59 Calcitonin [place] (Miacalcin) 1 sprays DAILY NASAL 02/10/19 09:00 03/11/19 17:14 02/10/19 09:25 Dextrose (Dextrose 50%) 25 ml Q30M PRN IV Hypoglycemia 02/09/19 19:00 03/11/19 17:29 Dextrose (Dextrose 50%) 50 ml Q30M PRN IV Hypoglycemia 02/09/19 19:00 03/11/19 17:29 Heparin Sodium (Porcine) (Heparin 5000 units/ml) 5,000 units EVERY 8 HOURS SUBQ 02/09/19 22:00 03/11/19 21:59 02/10/19 05:21 Insulin Aspart (NovoLOG) BEFORE MEALS AND HS SUBQ 02/10/19 11:30 03/12/19 11:29 Morphine Sulfate (Morphine Sulfate) 2 mg Q4H PRN IVP breakthrough pain 02/09/19 19:15 02/16/19 19:14 Pamidronate Disodium 30 mg/ Sodium Chloride 550 ml @ 137.5 mls/ hr ONCE ONCE IVPB 02/10/19 11:00 02/10/19 14:59 Potassium Chloride (K-Dur) 40 meq TWICE A DAY ORAL 02/10/19 09:30 03/12/19 09:29 02/10/19 10:12 Sodium Chloride 1,000 ml @ 150 mls/hr Q6H40M IV 02/10/19 08:45 03/12/19 08:44 02/10/19 09:05 Assessment/Plan Assessment/Plan: Hematology Consult REQ MD: Josiah Nguyễn DOS: Feb 10, 2019 Reason for Hospitalization: Hypercalcemia of malignancy RFC: Hypercalcemia, ANemia, Stage IV endometrial ca HPI 43-year-old female with a past medical history of diabetes mellitus type 2, stage IV endometrial cancer with metastases to bones, liver, and diaphragm, pathologic right fibular fracture. Currently pending outpatient work-up for chemotherapy (SHE IS SEEN BY DR. Fraga at [facility]). The patient presents with worsening fatigue, and bone pain for the past week. She states that the pain is all over her body, 8 out of 10, constant. She denies any recent illnesses, fever, chills, cough, shortness of breath. She denies any recent trauma to her right leg. Patient states that she saw orthopedic surgery this past Tuesday regarding the new pathologic fracture of her right fibula. He did not recommend any casting or nonweightbearing status. The ER the patient had a temperature of 98.6 blood pressure 144/76 pulse 7884 respirations 15 saturating 90% on room air. WBC 8.1 hemoglobin 11 platelets 148. Calcium elevated at 13.4, lactate 2.6, ionized calcium 1.37. Serum creatinine 0.7, potassium 3.9. Troponin negative. Bilateral lower extremity venous Doppler negative for DVT. Chest x-ray negative. X-ray of tib-fib shows osteolytic lesion of proximal fibula likely a pathologic fracture. EKG showed normal sinus rhythm. Magnesium was low at 1.0. Heme was consulted for eval. Allergies: No Known Allergies (Unverified , 02/09/19) Medication History Scheduled Glipizide* (Glipizide*), Unknown Dose ORAL BIDAC, (Reported) Metformin Hcl* (Metformin Hcl*), Unknown Dose ORAL TWICE A DAY, (Reported) Patient History Healthcare decision maker Resuscitation status Full code Advanced Directive on File ROS General: Denies fatigue, fever, chills, weight loss; + weight gain as above HENT: Denies oral sores, neck masses, nasal d/c, hearing problems Vison: Denies change in vision, eye pain, redness, discharge Cardiac: As above Pulmonary: As above GI: Denies heart burn, swallowing difficulty, abdominal pain, diarrhea, constipation : As per HPI Neuro: Denies seizure, weakness, numbness Endo: Denies heat/cold intolerance, weight changes, polyuria, polydipsia Heme/Onc: Denies unusual bleeding, bruising, clotting Ext: ttp on the right lateral leg++ PE: Vitals: reviewed General Appearance: NAD HEENT: normocephalic, atraumatic Neck: non-tender, normal alignment Respiratory/Chest: normal breath sounds bilaterally Cardiovascular/Chest: normal peripheral pulses, normal rate Abdomen: normal bowel sounds, soft, nontender Extremities: normal range of motion ++ ttp on right lat leg Labs: noted Imaging: reviewed Assessment/Plan: # Stage IV endometrial cancer presenting with hypercalcemia of malignancy. BRCA --, with recurrence of disease --> recommend continued f/u with Dr. Fraga at [facility] --> was to continue on rx, had a history of endometrial ca s/p hysterectomy and now with reucrrence, with involvement of skeletal mets, and is to get chemotherapy+radiation in the near future --> recommend ortho eval --> ca125 has been ordered # Hypercalcemia of malignancy --> Continue to trend calcium every 8 hours --> Normal saline at 300 cc an hour with a goal urine output of 100 to 150 cc/h --> intranasal calcitonin daily --> per renal recs --> pamidronate as needed prn # Anemia of chronic disease (or of iron deficiency) due to underlying chronic medical issues, multifactorial --> Anemia workup has been ordered, rule out gi bleed --> No evidence of hemolysis is noted, peripheral smear has been reviewed. --> Hgb goal >7. Transfuse prn. --> Epogen or iron at this time is not particularly indicated --> Medications have been reviewed --> low threshold for gi evaluation in case has occult + # Thrombocytopenia - potential causes multifactorial, evaluate liver and viral etiologies to begin, likely in this case is due to malignancy --> Hep panel and HIV ordered --> US abd to evaluate for cirrhosis and hsm ordered --> Peripheral smear ordered to evaluate for blasts /schistocytes --> abx and other meds have been reviewed --> ok for ppx if plt >50k w/ either heparin or lovenox # Elevated lactic acid likely secondary to underlying malignancy --> PCP Dr. Fitzgerald --> Continue to trend lactate --> consider abx if any evidence of infection # Pathological right fibula fracture, chronic --> Follows with orthopedic surgery as outpatient --> pain control as above --> may need ortho inhouse # Hypomagnesemia --> per renal # Diabetes mellitus type 2 # DVTPPX: heparin sbq The timing of this note does not necessarily reflect the time of the patient was seen. Greatly appreciate consultation. Robbi Gallardo MD Feb 10, 2019 11:45
[2019-02-10 12:00] VITALS: BP 130/69
--- NOTE | 2019-02-10 12:34 | Consultation ---
Consult Note Consult Note I was asked to eval and assist with HyperCalcemia Patient presents with weakness. She is unable to ambulate since Tuesday. She was seen by her orthopedic doctor because she has metastasis to her right leg. She has severe pain there when she attempts to ambulate. It somewhat better when she is recumbent. She is unable to weight-bear. She has been able to eat but her appetite is been poor. She denies any fevers or chills. There is no melena or hematochezia. She feels occasionally nauseated. Treatment at [facility]. No Known Allergies (Unverified , 02/09/19) Social History Narrative Lives with her 23-year-old son Past Medical History: No History, Except For Hx Diabetes: Yes Hx Cancer: Yes obese meds: Metformin and Glipizide Assessment/Plan Hypercalcemia, due to bone mets Pathologic Fx DM II Abnormal Lytes Anemia HypoAlbuminemia Hydrate Aredia total 90mg Calcitonin monitor Ca , Phos , Mag , K Iron panel Per orders Derick Polk MD Feb 10, 2019 12:34
[2019-02-10] MEDS: Docusate 100mg cap ORAL SCH ×2 (12:43→17:50)
--- NOTE | 2019-02-10 14:30 | NUR ---
NURSE NOTES: Patient on heparin 5,000 units SQ Q8HR, patient's platelet level today is noted at 117,000. Patient's platelet level yesterday noted at 148,000. Left starks is noted with one bruise. Contacted and informed Dr. Gallardo of assessment and inquired if they would like to set administration parameters for Heparin 5,[address] Gallardo acknowledged and provided parameters. Per Dr. Gallardo administer Heparin 5,000 units SQ Q8HR if platelet level is greater than 75,000. Orders entered, noted, and carried out. Will continue to monitor patient.
[2019-02-10 16:00] VITALS: BP 112/65
[2019-02-10] MEDS ORDERED: Tubing IV Secondary IV ONE ×2 (16:29→16:30)
[2019-02-10] MEDS ORDERED: NS 275ml ONE (16:29)
--- NOTE | 2019-02-10 17:45 | NUR ---
NURSE NOTES: Patient had x 1 clear 50 ml emesis, patient states is nauseated. Noted not PRN anti-emetic medications. Patient also states Norc 10/325 mg feels too strong for her at this time. Patient noted with no Tylenol PRN for mild pain. Called and reported situation to Dr. Rahman. Dr. Rahman acknowledged and ordered Zofran 4mg IV Q4HR PRN for nausea/vomiting and Tylenol 650 mg PO Q4HR PRN for pain. Orders entered, noted, and carried out. Will continue to monitor patient.
--- NOTE | 2019-02-10 19:20 | NUR ---
HAND-OFF: Report given to JOSE ELIAS Bolden.
--- NOTE | 2019-02-10 19:20 | NUR ---
NURSE NOTES: Report given to JOSE ELIAS Jurado. Patient awake and talkative. In no acute distress noted. Breathing even and unlabored. HOB elevated. Bed in lowest position. Call lights within reach. Will continue plan of care.
[2019-02-10 20:00] VITALS: BP 121/71
[2019-02-11] VITALS: BP 131/78
[2019-02-11] MEDS: Morphine Sulfate 2mg/ml Inj(IV/IM USE ONLY) IVP PRN ×3 (01:19→23:14)
[2019-02-11 04:00] VITALS: BP 131/79
[2019-02-11] MEDS: NovoLOG Insulin Flexpen SUBQ SCH ×4 (06:05→22:46)
[2019-02-11] MEDS: Heparin 5000 units/ml inj SUBQ SCH ×3 (06:37→21:28)
--- NOTE | 2019-02-11 07:41 | NUR ---
NURSE NOTES: Received report from Kimi/RN, Patient is awake , eating breakfast on bed. A/O x4. On room air, breathing even and unlabored. No acute distress/SOB noted at this time. Able to make needs known. IV site patent, no bleeding or infiltration noted. Cuadra draining well to gravity. Encourage to use call light when needed. Bed in low position and locked, bed alarm engaged, side-rails up x3. Call light within reach. Will continue plan of care.
--- NOTE | 2019-02-11 07:41 | NUR ---
HAND-OFF: Report given to JOSE ELIAS Freitas. Plan of care endorsed.
[2019-02-11 07:45] LABS: HEMATOCRIT 27.3 % (37.0-47.0); HEMOGLOBIN 9.3 G/DL (12.0-16.0); MEAN CORPUSCULAR VOLUME 92 FL (80-99); PLATELET COUNT 110 K/UL (150-450); RED BLOOD COUNT 2.97 M/UL (4.20-5.40); RED CELL DISTRIBUTION WIDTH 11.8 % (11.6-14.8)
[2019-02-11 08:00] VITALS: BP 137/77
[2019-02-11 08:42] LABS: ALANINE AMINOTRANSFERASE 18 U/L (12-78); ALBUMIN 2.5 G/DL (3.4-5.0); ALBUMIN/GLOBULIN RATIO 0.6 (1.0-2.7); ALKALINE PHOSPHATASE 89 U/L (46-116); ANION GAP 10 mmol/L (5-15); ASPARTATE AMINO TRANSFERASE 40 U/L (15-37); BILIRUBIN,TOTAL 0.3 MG/DL (0.2-1.0); BLOOD UREA NITROGEN 11 mg/dL (7-18); CALCIUM 11.6 MG/DL (8.5-10.1); CARBON DIOXIDE 28 MMOL/L (21-32); CHLORIDE 98 MMOL/L (98-107); CREATININE 0.6 MG/DL (0.55-1.30); FERRITIN 337 NG/ML (8-388); PHOSPHORUS 3.1 MG/DL (2.5-4.9); POTASSIUM 3.4 MMOL/L (3.5-5.1); SODIUM 136 MMOL/L (136-145)
[2019-02-11 08:48] LABS: CREATINE KINASE 72 U/L (26-308); GAMMA GLUTAMYL TRANSPEPTIDASE 47 U/L (5-85)
[2019-02-11] MEDS: Docusate 100mg cap ORAL SCH ×3 (09:04→17:10)
[2019-02-11 09:20] LABS: % IRON SATURATION 19 % (15-50); IRON 42 ug/dL (50-175); TOTAL IRON BINDING CAPACITY 226 ug/dL (250-450)
[2019-02-11] MEDS: Phospha 250 Neutral tab ORAL SCH ×3 (10:18→17:10)
--- NOTE | 2019-02-11 10:19 | General Progress Note ---
Assessment/Plan Problem List: (1) Diabetes mellitus type 2 in obese ICD Codes: E11.69 - Type 2 diabetes mellitus with other specified complication ; E66.9 - Obesity, unspecified SNOMED: 19327008 (2) Hypercalcemia of malignancy ICD Codes: E83.52 - Hypercalcemia SNOMED: 29396789 (3) Hypomagnesemia ICD Codes: E83.42 - Hypomagnesemia SNOMED: 439832579 (4) Metastatic cancer ICD Codes: C79.9 - Secondary malignant neoplasm of unspecified site SNOMED: 915116301 (5) Pathologic fracture ICD Codes: M84.40XA - Pathological fracture, unspecified site, initial encounter for fracture SNOMED: 341712368 Qualifiers: Qualified Codes: M84.563K - Pathological fracture in neoplastic disease, right fibula, subsequent encounter for fracture with nonunion (6) Elevated lactic acid level ICD Codes: R79.89 - Other specified abnormal findings of blood chemistry SNOMED: 2810899 (7) Hypercalcemia ICD Codes: E83.52 - Hypercalcemia SNOMED: 96215843 Status: stable, not improved, unchanged Assessment/Plan: This is a 43-year-old female with a history of stage IV endometrial cancer presenting with hypercalcemia of malignancy. #Hypercalcemia of malignancy -telemetry -Continue to trend calcium every 8 hours -Normal saline at 300 cc an hour with a goal urine output of 100 to 150 cc/h -Lasix - intranasal calcitonin daily -Appreciate nephrology consultation: Dr. Polk. S/p Aredia 60 mg on 02/09, will give another 30 mg today 02/10 -Poth 5 and Poth 10 for pain control Q6hr PRN, morphine IV Q3hr for breakthrough pain -Heme/onc consult with DR. Wells #Elevated lactic acid likely secondary to underlying malignancy > Outside oncologist Dr. Mcclelland >PCP Dr. Fitzgerald -Continue to trend lactate -Continue to monitor for signs and symptoms of infection. None currently. -Continue fluids as above #Pathological right fibula fracture, chronic #LE weakness -Follows with orthopedic surgery as outpatient. Dr. Guy. -Obtain ortho consult as she is non weight baring now- placed consult in with DR. Ronquillo. f/u -pain control as above -Ordered physical therapy to evaluate -Head CT to rule out mets #Hypomagnesemia -replete #Diabetes mellitus type 2 -hold home glipizide and metformin -Accu-Cheks before meals and at bedtime -Sliding scale insulin FENPPX DVTPPX: heparin sbq GI PPX: None Fluids: As above Diet: Regular Lines: none PT/OT: Pending Code status: Full Dispo: Home after resolution of above issues Reason for Continued Hospitalization: Hypercalcemia 40 minutes spent on this encounter. Discussed with RN, Patient, and nephrology. > 50% spent on counseling and care coordination. Time of note may not reflect time patient was seen. Subjective Date patient seen: Feb 11, 2019 ROS Limited/Unobtainable: No Constitutional: Reports: weakness - in legs ; Denies: no symptoms, chills, diaphoresis, fever, malaise, other HEENT: Denies: no symptoms, eye pain, blurred vision, tearing, double vision, ear pain, ear discharge, nose pain, nose congestion, throat pain, throat swelling, mouth pain, mouth swelling, other Cardiovascular: Denies: no symptoms, chest pain, edema, irregular heart rate, lightheadedness, palpitations, syncope, other Respiratory: Denies: no symptoms, cough, orthopnea, shortness of breath, SOB with excertion, SOB at rest, sputum, stridor, wheezing, other Gastrointestinal/Abdominal: Denies: no symptoms, abdomen distended, abdominal pain, black stools, tarry stools, blood in stool, constipated, diarrhea, difficulty swallowing, nausea, poor appetite, poor fluid intake, rectal bleeding , vomiting, other Genitourinary: Denies: no symptoms, burning, discharge, frequency, flank pain, hematuria, incontinence, pain, urgency, other Neurologic/Psychiatric: Reports: numbness - left index finger , tingling - chin area; Denies: no symptoms, anxiety, depressed, emotional problems, headache , paresthesia, pre-existing deficit, seizure, tremors, weakness, other Endocrine: Denies: no symptoms, excessive sweating, flushing, intolerance to cold, intolerance to heat, increased hunger, increased thirst, increased urine, unexplained weight gain, unexplained weight loss, other Hematologic/Lymphatic: Denies: no symptoms, anemia, easy bleeding, easy bruising, other Allergies: Coded Allergies: No Known Allergies (Unverified , 02/09/19) Subjective seen and examined at bedside. Son and friend at bedside alert and oriented x3 Has pain in the right leg. Says saw ortho Dr. Guy at [facility] who offered no intervention for her metastatic disease to the right leg. She has been unable to bear weight since 4 days prior to admission She is being treated for hypercalcemia and hypomagnesemia unable to ambulate, both legs extremely weak. Objective Last 24 Hour Vital Signs Date Time Temp Pulse Resp B/P (MAP) Pulse Ox O2 Delivery O2 Flow Rate FiO2 02/11/19 08:00 99.0 99 18 137/77 (97) 92 02/11/19 04:00 91 02/11/19 04:00 97.8 92 18 131/79 (96) 97 02/11/19 00:00 90 02/11/19 00:00 98.0 68 18 131/78 (95) 99 02/10/19 21:00 Room Air 02/10/19 20:00 98.2 78 16 121/71 (88) 99 02/10/19 20:00 76 02/10/19 16:00 70 02/10/19 16:00 97.9 79 18 112/65 (81) 96 02/10/19 12:00 98.2 73 18 130/69 (89) 100 02/10/19 12:00 76 Intake and Output 02/10/19 02/11/19 19:00 07:00 Intake Total 1980.0 ml Output Total 1400 ml 1800 ml Balance 580.0 ml -1800 ml Intake Oral 630 ml IV Total 1350.0 ml Output Urine Total 1400 ml 1800 ml Laboratory Tests 02/11/19 06:25: White Blood Count 5.0, Red Blood Count 2.97L, Hemoglobin 9.3L, Hematocrit 27.3L , Mean Corpuscular Volume 92, Mean Corpuscular Hemoglobin 31.3H, Mean Corpuscular Hemoglobin Concent 34.0, Red Cell Distribution Width 11.8, Platelet Count 110L, Mean Platelet Volume 5.4L, Neutrophils (%) (Auto) , Lymphocytes (%) (Auto) , Monocytes (%) (Auto) , Eosinophils (%) (Auto) , Basophils (%) (Auto) , Neutrophils % (Manual) [Pending], Lymphocytes % (Manual) [Pending], Platelet Estimate [Pending], Platelet Morphology [Pending], Sodium Level 136, Potassium Level 3.4L, Chloride Level 98, Carbon Dioxide Level 28, Anion Gap 10, Blood Urea Nitrogen 11, Creatinine 0.6, Estimat Glomerular Filtration Rate > 60, Glucose Level 116H, Lactic Acid Level 1.10, Uric Acid 5.6, Calcium Level 11.6H, Phosphorus Level 3.1, Magnesium Level 1.0L, Iron Level 42L, Total Iron Binding Capacity 226L, Percent Iron Saturation 19, Unsaturated Iron Binding 184, Ferritin 337, Total Bilirubin 0.3, Gamma Glutamyl Transpeptidase 47, Aspartate Amino Transf (AST/SGOT) 40H, Alanine Aminotransferase (ALT/SGPT) 18, Alkaline Phosphatase 89, Total Creatine Kinase 72, C-Reactive Protein, Quantitative 4.8H , Pro-B-Type Natriuretic Peptide 225H, Total Protein 6.6, Albumin 2.5L, Globulin 4.1, Albumin/Globulin Ratio 0.6L, Vitamin B12 Level 436, Folate 16.6 Height (Feet): 5 Height (Inches): 7.00 Weight (Pounds): 188 Objective General Appearance: WD/WN, no apparent distress, alert Lines, tubes and drains: peripheral HEENT: normocephalic, atraumatic, anicteric, mucous membranes moist Neck: non-tender, normal alignment, supple, normal inspection Respiratory/Chest: chest wall non-tender, lungs clear, normal breath sounds Cardiovascular/Chest: normal peripheral pulses, normal rate, regular rhythm, no JVD Abdomen: normal bowel sounds, non tender, soft, no organomegaly, no mass Extremities: normal range of motion, other - Some tenderness to palpation of right lateral leg. No deformities seen. Trace edema bilaterally. Skin Exam: normal pigmentation, warm/dry Neurologic: see supervisor II-XII grossly normal, alert, oriented x 3, responsive, motor 3 /5 bilateral LE, 5/5 bilateral UE. Tingling in jaw, reduced sensation left index finger Lymphatic: anterior cervical - No lymphadenopathy Musculoskeletal: normal muscle bulk, no effusion Micheal Rahman M.D. Feb 11, 2019 10:19
--- NOTE | 2019-02-11 11:11 | Nephrology Progress Note ---
Assessment/Plan Problem List: (1) Hypercalcemia of malignancy (2) Hypomagnesemia (3) Metastatic cancer (4) Pathologic fracture (5) Diabetes mellitus type 2 in obese Assessment Hypercalcemia, due to bone mets Pathologic Fx DM II Abnormal Lytes Anemia HypoAlbuminemia Plan Hydrate Aredia total 90mg total given 02/09-02/10 Calcitonin nasal monitor Ca , Phos , Mag , K Iron panel noted IV lasix Mag IV and K supplement as needed Per orders Subjective ROS Limited/Unobtainable: No Constitutional: Reports: malaise, weakness Objective Objective Last 24 Hour Vital Signs Date Time Temp Pulse Resp B/P (MAP) Pulse Ox O2 Delivery O2 Flow Rate FiO2 02/11/19 08:00 99.0 99 18 137/77 (97) 92 02/11/19 04:00 91 02/11/19 04:00 97.8 92 18 131/79 (96) 97 02/11/19 00:00 90 02/11/19 00:00 98.0 68 18 131/78 (95) 99 02/10/19 21:00 Room Air 02/10/19 20:00 98.2 78 16 121/71 (88) 99 02/10/19 20:00 76 02/10/19 16:00 70 02/10/19 16:00 97.9 79 18 112/65 (81) 96 02/10/19 12:00 98.2 73 18 130/69 (89) 100 02/10/19 12:00 76 Intake and Output 02/10/19 02/11/19 19:00 07:00 Intake Total 1980.0 ml Output Total 1400 ml 1800 ml Balance 580.0 ml -1800 ml Intake Oral 630 ml IV Total 1350.0 ml Output Urine Total 1400 ml 1800 ml Laboratory Tests 02/11/19 06:25: White Blood Count 5.0, Red Blood Count 2.97L, Hemoglobin 9.3L, Hematocrit 27.3L , Mean Corpuscular Volume 92, Mean Corpuscular Hemoglobin 31.3H, Mean Corpuscular Hemoglobin Concent 34.0, Red Cell Distribution Width 11.8, Platelet Count 110L, Mean Platelet Volume 5.4L, Neutrophils (%) (Auto) , Lymphocytes (%) (Auto) , Monocytes (%) (Auto) , Eosinophils (%) (Auto) , Basophils (%) (Auto) , Differential Total Cells Counted 100, Neutrophils % (Manual) 90H, Lymphocytes % (Manual) 3L, Monocytes % (Manual) 5, Eosinophils % (Manual) 1, Basophils % ( Manual) 1, Band Neutrophils 0, Platelet Estimate DecreasedL, Platelet Morphology Normal, Hypochromasia 2+, Anisocytosis 1+, Sodium Level 136, Potassium Level 3.4L, Chloride Level 98, Carbon Dioxide Level 28, Anion Gap 10, Blood Urea Nitrogen 11, Creatinine 0.6, Estimat Glomerular Filtration Rate > 60 , Glucose Level 116H, Lactic Acid Level 1.10, Uric Acid 5.6, Calcium Level 11.6H , Phosphorus Level 3.1, Magnesium Level 1.0L, Iron Level 42L, Total Iron Binding Capacity 226L, Percent Iron Saturation 19, Unsaturated Iron Binding 184 , Ferritin 337, Total Bilirubin 0.3, Gamma Glutamyl Transpeptidase 47, Aspartate Amino Transf (AST/SGOT) 40H, Alanine Aminotransferase (ALT/SGPT) 18, Alkaline Phosphatase 89, Total Creatine Kinase 72, C-Reactive Protein, Quantitative 4.8H, Pro-B-Type Natriuretic Peptide 225H, Total Protein 6.6, Albumin 2.5L, Globulin 4.1, Albumin/Globulin Ratio 0.6L, Vitamin B12 Level 436, Folate 16.6 Height (Feet): 5 Height (Inches): 7.00 Weight (Pounds): 188 General Appearance: no apparent distress Cardiovascular: tachycardia Respiratory/Chest: decreased breath sounds Abdomen: soft Derick Polk MD Feb 11, 2019 11:11
[2019-02-11] MEDS: Vitamin B12 1000mcg/ml Inj IM SCH (11:52)
[2019-02-11 12:00] VITALS: BP 130/72
--- NOTE | 2019-02-11 12:58 | NUR ---
NURSE NOTES: offered Eureka 10/325 for pain, patient refused to take Eureka 10/325, and requested Morphine breakthrough pain medication. Morphine given per patient request.
[2019-02-11 16:00] VITALS: BP 121/62
--- NOTE | 2019-02-11 19:31 | NUR ---
NURSE NOTES: Report received from JOSE ELIAS Freitas. Pt in bed resting, in no acute distress. Will continue plan of care.
--- NOTE | 2019-02-11 19:31 | NUR ---
HAND-OFF: Report given to Kimi/JOSE ELIAS. Patient in stable condition. Endorsed plan of care.
[2019-02-11 20:00] VITALS: BP 110/66
[2019-02-12] VITALS: BP 106/67
[2019-02-12 04:00] VITALS: BP 118/65
[2019-02-12] MEDS: Morphine Sulfate 2mg/ml Inj(IV/IM USE ONLY) IVP PRN (05:29)
[2019-02-12] MEDS: Heparin 5000 units/ml inj SUBQ SCH ×4 (05:39→22:06)
[2019-02-12 07:09] LABS: BASOPHILS % (AUTO) 1.8 % (0.0-2.0); EOSINOPHILS % (AUTO) 1.8 % (0.0-3.0); HEMATOCRIT 28.2 % (37.0-47.0); HEMOGLOBIN 9.9 G/DL (12.0-16.0); LYMPHOCYTES % (AUTO) 5.4 % (20.0-45.0); MEAN CORPUSCULAR VOLUME 90 FL (80-99); MONOCYTES % (AUTO) 11.8 % (1.0-10.0); NEUTROPHILS % (AUTO) 79.3 % (45.0-75.0); PLATELET COUNT 110 K/UL (150-450); RED BLOOD COUNT 3.13 M/UL (4.20-5.40); RED CELL DISTRIBUTION WIDTH 11.8 % (11.6-14.8)
[2019-02-12] MEDS: NovoLOG Insulin Flexpen SUBQ SCH ×4 (07:16→20:57)
[2019-02-12 07:26] LABS: ALANINE AMINOTRANSFERASE 21 U/L (12-78); ALBUMIN 2.6 G/DL (3.4-5.0); ALBUMIN/GLOBULIN RATIO 0.6 (1.0-2.7); ALKALINE PHOSPHATASE 99 U/L (46-116); ANION GAP 8 mmol/L (5-15); ASPARTATE AMINO TRANSFERASE 52 U/L (15-37); BILIRUBIN,TOTAL 0.3 MG/DL (0.2-1.0); BLOOD UREA NITROGEN 14 mg/dL (7-18); CARBON DIOXIDE 30 MMOL/L (21-32); CHLORIDE 97 MMOL/L (98-107); CREATININE 0.6 MG/DL (0.55-1.30); PHOSPHORUS 3.1 MG/DL (2.5-4.9); POTASSIUM 3.8 MMOL/L (3.5-5.1); SODIUM 135 MMOL/L (136-145)
[2019-02-12 07:34] LABS: CALCIUM 9.6 MG/DL (8.5-10.1)
--- NOTE | 2019-02-12 07:57 | NUR ---
HAND-OFF: Report given to JOSE ELIAS Amezcua. Plan of care endorsed.
--- NOTE | 2019-02-12 07:59 | NUR ---
NURSE NOTES: pt in bed having breakfast. Pt on rn cardiac cath no signs of cardiac or respiratory issues at this time. pt has guzman 16F. Iv is patent and running 100ml/hr. Bed is locked and in lowest position. Call light within reach. Will continue to monitor pt pain and labs.
[2019-02-12 08:28] VITALS: BP 129/75
--- NOTE | 2019-02-12 10:21 | NUR ---
*-* INSURANCE *-* ALL AVAILABLE CLINICALS HAVE BEEN FAXED TO: [facility] [facility] TRK# [id number] NO CM ASSIGNED YET #[phone] FAX#[phone] REVIEWS/CLINICALS
--- NOTE | 2019-02-12 10:35 | Nephrology Progress Note ---
Assessment/Plan Problem List: (1) Hypercalcemia of malignancy (2) Hypomagnesemia (3) Metastatic cancer (4) Pathologic fracture (5) Diabetes mellitus type 2 in obese Assessment Hypercalcemia, due to bone mets Pathologic Fx DM II Abnormal Lytes Anemia HypoAlbuminemia Plan Hydrate Aredia total 90mg total given 02/09-02/10 Calcitonin nasal monitor Ca , Phos , Mag , K Iron panel noted IV lasix Mag IV and K supplement as needed Per orders Subjective ROS Limited/Unobtainable: No Constitutional: Reports: malaise Objective Objective Last 24 Hour Vital Signs Date Time Temp Pulse Resp B/P (MAP) Pulse Ox O2 Delivery O2 Flow Rate FiO2 02/12/19 08:28 98.9 101 18 129/75 (93) 96 02/12/19 04:00 82 02/12/19 04:00 97.5 85 18 118/65 (82) 96 02/12/19 00:00 97.7 79 18 106/67 (80) 97 02/12/19 00:00 80 02/11/19 21:00 Room Air 02/11/19 20:00 97.5 97 18 110/66 (81) 97 02/11/19 20:00 84 02/11/19 16:00 99.0 94 18 121/62 (81) 96 02/11/19 16:00 83 02/11/19 12:00 89 02/11/19 12:00 97.9 98 18 130/72 (91) 96 Intake and Output 02/11/19 02/12/19 19:00 07:00 Intake Total 1120 ml 800 ml Output Total 2950 ml 1100 ml Balance -1830 ml -300 ml Intake Oral 1120 ml Other 800 ml Output Urine Total 2950 ml 1100 ml Laboratory Tests 02/12/19 06:35: White Blood Count 4.0L, Red Blood Count 3.13L, Hemoglobin 9.9L, Hematocrit 28.2L , Mean Corpuscular Volume 90, Mean Corpuscular Hemoglobin 31.5H, Mean Corpuscular Hemoglobin Concent 35.1, Red Cell Distribution Width 11.8, Platelet Count 110L, Mean Platelet Volume 5.6L, Neutrophils (%) (Auto) 79.3H, Lymphocytes (%) (Auto) 5.4L, Monocytes (%) (Auto) 11.8H, Eosinophils (%) (Auto) 1.8, Basophils (%) (Auto) 1.8, Sodium Level 135L, Potassium Level 3.8, Chloride Level 97L, Carbon Dioxide Level 30, Anion Gap 8, Blood Urea Nitrogen 14, Creatinine 0.6, Estimat Glomerular Filtration Rate > 60, Glucose Level 125H, Calcium Level 9.6, Phosphorus Level 3.1, Magnesium Level 1.3L, Total Bilirubin 0.3, Aspartate Amino Transf (AST/SGOT) 52H, Alanine Aminotransferase (ALT/SGPT) 21, Alkaline Phosphatase 99, Total Protein 6.9, Albumin 2.6L, Globulin 4.3, Albumin/Globulin Ratio 0.6L Height (Feet): 5 Height (Inches): 7.00 Weight (Pounds): 188 General Appearance: lethargic Cardiovascular: tachycardia Respiratory/Chest: decreased breath sounds Abdomen: distended Derick Polk MD Feb 12, 2019 10:35
[2019-02-12] MEDS: Vitamin B12 1000mcg/ml Inj IM SCH (10:37)
[2019-02-12] MEDS: Docusate 100mg cap ORAL SCH ×3 (10:37→19:18)
--- NOTE | 2019-02-12 10:40 | NUR ---
PT EVALUATION NOTE Patient seen for initial evaluation, see complete evaluation for details. Patient presents with generalized weakness which affects patient's ability to perform mobility tasks. Patient currently has no voluntary movement of BLEs with 3-/5 strength BUEs. Patient requires max/dependent assist of 2 people to come to sitting at EOB and requires assist to maintain sitting at EOB. Patient unable to stand or transfer at this time. Patient will benefit from skilled inpatient PT intervention to increase strength all four extremities, improve sitting balance and mobility tasks for improved level of function. Recommend discharge to ARU for further rehab once medically cleared by MD to increase strength for improved level of functional mobility. DME needs to be determined based on patient's progress. Addendum: 02/12/19 at 1346 by OTTO DELATORRE PT Amended: Links added.
[2019-02-12] MEDS: HYDROcodone/Acetamin 10/325 tab ORAL PRN ×2 (10:57→19:24)
[2019-02-12 12:00] VITALS: BP 128/68
[2019-02-12] MEDS: Magnesium Oxide 400mg tab ORAL SCH ×2 (12:37→19:18)
--- NOTE | 2019-02-12 12:41 | Diagnostic Imaging Report ---
Indication: Headache Technique: Contiguous 5 mm thick transaxial imaging of the head obtained in a Siemens Sensation [address] scanner. Soft tissue and bone windows generated. Automatic Exposure Control was utilized. Total Dose length Product (DLP): [address] Dose Index Volume (CTDIvol): 62.7 mGy Comparison: none Findings: There is an apparent mass involving the posterior arch of C1 right of midline, incompletely assessed on this examination. There may be a lytic defect involving the C1 posterior arch. This is seen for example on the transaxial sequences, images 1-3. Further evaluation of this is recommended. An MRI may be of benefit. There is a metallic focus posterior cervical region which may be external. Few nonspecific lucent lesions are demonstrated within the right calvarium. There is mild bifrontal atrophy with some sulcal prominence. The ventricles and basal cisterns are normal. There is no mass effect, edema or evidence of acute intracranial hemorrhage. IMPRESSION: Apparent mass and lytic lesion involving the right posterior arch of C1. This is incompletely assessed on the current examination. Further evaluation with gadolinium-enhanced MRI of the cervical spine amended. No acute intracranial hemorrhage, mass effect or edema. Mild bifrontal atrophy The CT scanner at [facility] is accredited by the [employer] and the scans are performed using dose optimization techniques as appropriate to a performed exam including Automatic Exposure control.
[2019-02-12] MEDS ORDERED: Gadavist 7.5mMol/7.5ml vial IV PRN ×3 (14:30)
--- NOTE | 2019-02-12 15:40 | NUR ---
NURSE NOTES: pt went down stairs for MRI. per Doctor Felix ok to enter off tele order.
[2019-02-12 16:00] VITALS: BP 105/58
--- NOTE | 2019-02-12 17:56 | General Progress Note ---
Assessment/Plan Problem List: (1) Hypercalcemia of malignancy ICD Codes: E83.52 - Hypercalcemia SNOMED: 87362654 (2) Hypercalcemia ICD Codes: E83.52 - Hypercalcemia SNOMED: 72705833 (3) Diabetes mellitus type 2 in obese ICD Codes: E11.69 - Type 2 diabetes mellitus with other specified complication ; E66.9 - Obesity, unspecified SNOMED: 06329276 (4) Metastatic cancer ICD Codes: C79.9 - Secondary malignant neoplasm of unspecified site SNOMED: 833355445 (5) Elevated lactic acid level ICD Codes: R79.89 - Other specified abnormal findings of blood chemistry SNOMED: 6456879 (6) Hypomagnesemia ICD Codes: E83.42 - Hypomagnesemia SNOMED: 532481472 (7) Pathologic fracture ICD Codes: M84.40XA - Pathological fracture, unspecified site, initial encounter for fracture SNOMED: 212458790 Qualifiers: Qualified Codes: M84.563K - Pathological fracture in neoplastic disease, right fibula, subsequent encounter for fracture with nonunion (8) Lower extremity weakness ICD Codes: R29.898 - Other symptoms and signs involving the musculoskeletal system SNOMED: 054130217 Status: stable, not improved, unchanged Assessment/Plan: This is a 43-year-old female with a history of stage IV endometrial cancer presenting with hypercalcemia of malignancy. #Hypercalcemia of malignancy - improving -telemetry -Continue to trend calcium -Normal saline at 100 cc an hour with a goal urine output of 100 to 150 cc/h -Lasix - intranasal calcitonin daily -Appreciate nephrology consultation: Dr. oPlk. S/p Aredia 90 mg total. - 02/10 -Callahan 5 and Callahan 10 for pain control Q6hr PRN, morphine IV Q3hr for breakthrough pain -Heme/onc consult with DR. Wells #Lower extremity Weakness, acute. Has had this 1-2 days prior to admission > Has not improved with correction of calcium > CT Spine 02/12/19 - Apparent mass and lytic lesion involving the right posterior arch of C1. This is incompletely assessed on the current examination. - Obtain MRI C/T/L spine with contrast, urgent #Elevated lactic acid likely secondary to underlying malignancy - Resolved > Outside oncologist Dr. Mcclelland >PCP Dr. Molitoris -Continue to trend lactate -Continue to monitor for signs and symptoms of infection. None currently. -Continue fluids as above #Pathological right fibula fracture, chronic #LE weakness -Follows with orthopedic surgery as outpatient. Dr. Guy. -Obtain ortho consult as she is non weight baring now- placed consult in with DR. Ronquillo. f/u -pain control as above -Ordered physical therapy to evaluate #Hypomagnesemia -replete #Diabetes mellitus type 2 -hold home glipizide and metformin -Accu-Cheks before meals and at bedtime -Sliding scale insulin #Hypomagnesemia - mag oxide 400mg PO TID FENPPX DVTPPX: heparin sbq GI PPX: None Fluids: As above Diet: Regular Lines: none PT/OT: Ordered - recommending ARU Code status: Full Dispo: Home after resolution of above issues Reason for Continued Hospitalization: Hypercalcemia, acute LE weakness 37 minutes spent on this encounter. Discussed with RN, Patient, nephrology, and hematology/oncology. > 50% spent on counseling and care coordination. Time of note may not reflect time patient was seen. Subjective Date patient seen: Feb 12, 2019 Constitutional: Reports: malaise; Denies: chills, diaphoresis, fever, weakness , other HEENT: Denies: eye pain, blurred vision, tearing, double vision, ear pain, ear discharge, nose pain, nose congestion, throat pain, throat swelling, mouth pain , mouth swelling, other Cardiovascular: Denies: chest pain, edema, irregular heart rate, lightheadedness, palpitations, syncope, other Respiratory: Denies: cough, orthopnea, shortness of breath, SOB with excertion , SOB at rest, sputum, stridor, wheezing, other Gastrointestinal/Abdominal: Denies: abdomen distended, abdominal pain, black stools, tarry stools, blood in stool, constipated, diarrhea, difficulty swallowing, nausea, poor appetite, poor fluid intake, rectal bleeding, vomiting , other Genitourinary: Denies: burning, discharge, frequency, flank pain, hematuria, incontinence, pain, urgency, other Neurologic/Psychiatric: Denies: anxiety, depressed, emotional problems, headache, numbness, paresthesia, pre-existing deficit, seizure, tingling, tremors, weakness, other Endocrine: Denies: excessive sweating, flushing, intolerance to cold, intolerance to heat, increased hunger, increased thirst, increased urine, unexplained weight gain, unexplained weight loss, other Hematologic/Lymphatic: Denies: anemia, easy bleeding, easy bruising, other Allergies: Coded Allergies: No Known Allergies (Unverified , 02/09/19) Subjective No acute events overnight per nursing. Patient continues to complain of right leg pain, constant, sharp, 5 out of 10. Unable to move both of her legs bilaterally. Has sensation intact. No headaches, nausea, or vomiting. No other complaints Objective Last 24 Hour Vital Signs Date Time Temp Pulse Resp B/P (MAP) Pulse Ox O2 Delivery O2 Flow Rate FiO2 02/12/19 16:00 98.7 91 18 105/58 (74) 98 02/12/19 12:00 98.6 81 20 128/68 (88) 97 02/12/19 12:00 96 02/12/19 09:00 Room Air 02/12/19 08:28 98.9 101 18 129/75 (93) 96 02/12/19 08:00 81 02/12/19 04:00 82 02/12/19 04:00 97.5 85 18 118/65 (82) 96 02/12/19 00:00 97.7 79 18 106/67 (80) 97 02/12/19 00:00 80 02/11/19 21:00 Room Air 02/11/19 20:00 97.5 97 18 110/66 (81) 97 02/11/19 20:00 84 Intake and Output 02/11/19 02/12/19 19:00 07:00 Intake Total 1120 ml 800 ml Output Total 2950 ml 1100 ml Balance -1830 ml -300 ml Intake Oral 1120 ml Other 800 ml Output Urine Total 2950 ml 1100 ml Laboratory Tests 02/12/19 06:35: White Blood Count 4.0L, Red Blood Count 3.13L, Hemoglobin 9.9L, Hematocrit 28.2L , Mean Corpuscular Volume 90, Mean Corpuscular Hemoglobin 31.5H, Mean Corpuscular Hemoglobin Concent 35.1, Red Cell Distribution Width 11.8, Platelet Count 110L, Mean Platelet Volume 5.6L, Neutrophils (%) (Auto) 79.3H, Lymphocytes (%) (Auto) 5.4L, Monocytes (%) (Auto) 11.8H, Eosinophils (%) (Auto) 1.8, Basophils (%) (Auto) 1.8, Sodium Level 135L, Potassium Level 3.8, Chloride Level 97L, Carbon Dioxide Level 30, Anion Gap 8, Blood Urea Nitrogen 14, Creatinine 0.6, Estimat Glomerular Filtration Rate > 60, Glucose Level 125H, Calcium Level 9.6, Phosphorus Level 3.1, Magnesium Level 1.3L, Total Bilirubin 0.3, Aspartate Amino Transf (AST/SGOT) 52H, Alanine Aminotransferase (ALT/SGPT) 21, Alkaline Phosphatase 99, Total Protein 6.9, Albumin 2.6L, Globulin 4.3, Albumin/Globulin Ratio 0.6L Height (Feet): 5 Height (Inches): 7.00 Weight (Pounds): 188 General Appearance: WD/WN, no apparent distress, alert EENT: PERRL/EOMI, normal ENT inspection Neck: non-tender, normal alignment, supple Cardiovascular: normal peripheral pulses, normal rate, regular rhythm, no JVD Respiratory/Chest: chest wall non-tender, lungs clear, normal breath sounds Abdomen: normal bowel sounds, non tender, soft, other Extremities: normal range of motion, non-tender, other - No lower extremity edema bilaterally Neurologic: uke operator II-XII grossly normal, alert, oriented x 3, responsive, normal mood/affect, other - 1 out of 5 muscle strength in lower extremities bilaterally. Sensation intact to light touch in lower extremities bilaterally Skin: normal pigmentation, warm/dry Steven Cantrell D.O. Feb 12, 2019 17:56
--- NOTE | 2019-02-12 18:46 | NUR ---
NURSE NOTES: pt is still downstairs MRI will take longer about 1 and 30min longer than expected.
--- NOTE | 2019-02-12 19:18 | Diagnostic Imaging Report ---
Indication: Bone pain, extremity numbness, generalized weakness, history of endometrial carcinoma Technique: Sagittal T1 fast spin-echo, sagittal T2 FRFSE, sagittal STIR, axial T2 FRFSE, axial T1, axial T2 disc cuts, pre and postcontrast sagittal and axial T1 fat-saturated images of the lumbar spine Comparison: none Findings: The included T10 vertebral body demonstrates diffuse mildly decreased T1 and increased STIR signal, as well as more focal signal abnormality near the inferior endplate. Small foci of abnormal decreased T1 and increased STIR marrow signal are seen in the lower thoracic spine and the L1 and L3 vertebral bodies. No large expansile or destructive lesions are demonstrated. There is a focus of contrast enhancement in the left lateral aspect of the L2 vertebral body which does not definitely demonstrate any T1 signal abnormality, may indicate slight STIR abnormality, but probably represents a metastatic deposit. The L3 lesion also enhances slightly. Multiple low T1 signal contrast enhancing foci are seen in the iliac bones bilaterally. No other unusual contrast enhancement is demonstrated. The conus medullaris terminates at the T2 level. The vertebral body heights are preserved. The disc spaces are preserved. There is coby based posterior disc protrusion with a peripheral high signal area involving the L5-S1 disc. This does not result in any significant canal compromise or neural foraminal compromise. At the remaining disc levels, no significant disc bulge or protrusion, spinal stenosis, or neural foraminal stenosis demonstrated. Impression: Multifocal marrow signal abnormalities, as described, consistent with metastatic foci in patient with known history of metastatic endometrial carcinoma No evidence of significant bilateral canal or neural foraminal compromise related to the above. Nonsignificant degenerative change at L5-S1
--- NOTE | 2019-02-12 19:32 | Diagnostic Imaging Report ---
Indication: 43-year-old female inpatient with history of endometrial carcinoma with metastases to the bone, numbness feeling to extremities, bone pain, generalized weakness Technique: Sagittal T1 FLAIR PROPELLER, sagittal T2 PROPELLER, sagittal STIR axial T2 PROPELLER, axial 3-D COSMIC ASPIR axial T1 fat-saturated images pre-and postcontrast, pre and post contrast sagittal T1 FSE images of the cervical spine Comparison: none Findings: There is a mass replacing the posterior arch of C1 on the right and in the midline. This is high signal on the T2-weighted images, intermediate to low on the T1-weighted images, and enhances fairly avidly. This measures approximately 2.9 cm AP by 2.1 cm transverse by 1.6 cm craniocaudad. This intrudes on the spinal canal, contacts the posterolateral aspect of the cord on the right, but does not significantly impinge upon the cord; the cord is nearly completely surrounded by CSF at this level. The C3 spinous process and lamina are replaced by tumor. This does not impinge on the spinal canal. There is a mass growing exophytically out of the right C5 pedicle. This measures 16 cm AP by 2.2 cm transverse. This completely fills the right C4-5 neural foramen. This might also extend into the C3-4 foramen. It does not significantly involve the spinal canal. This also appears to invade the pars interarticularis. Abnormal contrast enhancement is seen involving the right-sided paraspinous musculature adjacent to the lamina, possibly indicating tumor involvement. Most of C7 is replaced by tumor. Abnormal marrow signal and enhancement completely replaces the T7 vertebral body, which also demonstrates some loss of height indicating a pathologic compression fracture. Tumor also involves the posterior elements, particularly the left lamina and spinous process, with mass in this area measuring approximately 2.7 cm AP by 2.6 cm transverse. This tumor also invades into the spinal canal on the left posterolateral aspect, contacting the cord but not significantly displacing it. Tumor also involves the C7-T1 neural foramen, completely filling it. There is tumor involvement of the included T1 and T2 segments. These are discussed in a separate thoracic spine MRI report. At C5-6, there is mild circumferential annular bulge. This does not significantly impinge upon the spinal canal. At the other levels, no significant disc bulge or protrusion or spinal stenosis. No neural foraminal compromise other than the areas of tumor involvement discussed above. The intrinsic cord signal is normal. 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 Although tumor invades the spinal canal at multiple levels, there is no evidence of significant cord compression. However, there is tumor involvement involving multiple cysts neural foramina with likely compression or invasion of the associated nerve roots. This agrees with the preliminary interpretation provided overnight by [facility]eradiology service.
--- NOTE | 2019-02-12 19:40 | NUR ---
HAND-OFF: Report given to Eryn MOCTEZUMA. pt just arrived from MRI. pt in stable condition and having dinner.
--- NOTE | 2019-02-12 19:51 | Diagnostic Imaging Report ---
Indication: Bone pain, generalized weakness, numbness to extremities, history of endometrial carcinoma with osseous metastases Technique: Sagittal T1 FSE, sagittal T2 FRFSE, sagittal STIR axial T2 FRFSE, axial T1, axial T1 fat-saturated images pre-and postcontrast, pre and post contrast sagittal T1 FSE images of the thoracic spine Comparison: none Findings: There is evidence of multilevel metastatic tumor involvement. There is abnormal marrow signal involving the T1 vertebral body consistent with tumor replacement. There is abnormal signal within the T2 spinous process consistent with marrow replacement by tumor. There is expansion of the left T2 pedicle and transverse process by tumor. This may compromise the left T2-3 neural foramen. A 19 x 13 mm mass is seen lateral to the T3-T4 disc. This may result in some compromise of the left T3-4 and T4-5 neural foramina, although this is doubtful. Some tumor involvement is seen involving the left side of the L5 vertebral body. This may to some extent invade the lateral aspect of the T5-6 neural foramen on the left. At T7, there is evidence of tumor completely replacing the vertebral body, expanding and destroying the left pedicle and lamina, and invading left side of the epidural space, resulting in complete obliteration of the neural foramen and severely compressing the cord. There is also a mild wedge compression fracture deformity of the T7 vertebral body. At T8, there is evidence of tumor completely replacing the vertebral body and resulting in posterior retropulsion of the posterior wall. In addition, tumor expands and destroys the right pedicle and lamina, and invades the epidural space, significantly displacing the spinal cord to the left and severely compressing it. This is immediately caudad to the rightward cord displacement seen at the T7 level. At the mid T7 level, the spinal canal is compromised on both sides. There is high T2 signal within the cord at and just above this level, indicating significant myelomalacia. Tumor is seen expanding and destroying the left T10 transverse process and lateral lamina, as well as involving proximal 10th rib. This also extends into the adjacent paraspinous musculature. This does not result in any significant spinal canal compromise. There may be tumor growing into the left neural foramen at this level and slightly compromising it, however. Small foci of increased STIR and decreased T1 signal are seen within the T9, T10, T11, and T12 vertebral segments. These likely represent metastatic deposits as well There is evidence of metastatic disease involving the right third rib. No significant disc bulge or protrusion. The neural foramina not affected by tumor are normal in caliber. Impression: Extensive tumor involvement of the T7 and T8 vertebral bodies posterior elements, with retropulsion of the posterior T8 wall and significant epidural extension of tumor resulting in severe spinal stenosis and cord compression at these levels Multilevel tumor involvement elsewhere by presumed metastatic tumor, as detailed above.
[2019-02-12 20:00] VITALS: BP 132/60
--- NOTE | 2019-02-12 20:08 | NUR ---
NURSE NOTES: Received patient from JOSE ELIAS Amezcua. Patient alert, talkative, and no signs of distress or pain noted. Patient able to make needs known. IV site checked, intact and patent, no signs of infiltration, erythema, or bleeding. Bed in lowest position, brakes on, side rails up x3, and bed alarm on. Call light within reach. Will continue with plan of care.
[2019-02-13] VITALS: BP 107/55
[2019-02-13] MEDS: HYDROcodone/Acetamin 5/325 tab ORAL PRN ×2 (02:14→10:34)
[2019-02-13 04:00] VITALS: BP 108/57
[2019-02-13] MEDS: Heparin 5000 units/ml inj SUBQ SCH ×3 (06:17→21:03)
[2019-02-13] MEDS: NovoLOG Insulin Flexpen SUBQ SCH ×4 (06:18→21:00)
--- NOTE | 2019-02-13 07:25 | NUR ---
HAND-OFF: Report given to JOSE ELIAS Amezcua. Plan of care endorsed.
[2019-02-13 07:30] LABS: EOSINOPHILS % (AUTO) 2.7 % (0.0-3.0); HEMATOCRIT 30.5 % (37.0-47.0); HEMOGLOBIN 10.2 G/DL (12.0-16.0); LYMPHOCYTES % (AUTO) 10.8 % (20.0-45.0); MEAN CORPUSCULAR VOLUME 93 FL (80-99); MONOCYTES % (AUTO) 10.3 % (1.0-10.0); NEUTROPHILS % (AUTO) 74.3 % (45.0-75.0); PLATELET COUNT 120 K/UL (150-450); RED BLOOD COUNT 3.29 M/UL (4.20-5.40); RED CELL DISTRIBUTION WIDTH 12.1 % (11.6-14.8); WHITE BLOOD COUNT 3.7 K/UL (4.8-10.8)
[2019-02-13] MEDS ORDERED: Dexamethasone 4mg/ml vial IVP SCH (07:45)
[2019-02-13 08:11] LABS: ALANINE AMINOTRANSFERASE 27 U/L (12-78); ALBUMIN 2.6 G/DL (3.4-5.0); ALBUMIN/GLOBULIN RATIO 0.6 (1.0-2.7); ALKALINE PHOSPHATASE 109 U/L (46-116); ANION GAP 9 mmol/L (5-15); ASPARTATE AMINO TRANSFERASE 48 U/L (15-37); BILIRUBIN,TOTAL 0.3 MG/DL (0.2-1.0); BLOOD UREA NITROGEN 16 mg/dL (7-18); CALCIUM 8.6 MG/DL (8.5-10.1); CARBON DIOXIDE 28 MMOL/L (21-32); CHLORIDE 100 MMOL/L (98-107); CREATININE 0.7 MG/DL (0.55-1.30); PHOSPHORUS 2.3 MG/DL (2.5-4.9); POTASSIUM 3.9 MMOL/L (3.5-5.1); SODIUM 137 MMOL/L (136-145)
--- NOTE | 2019-02-13 08:24 | NUR ---
NURSE NOTES: pt in bed having breakfast. Pt is on bus driver/monitor and has no signs of cardiac or respiratory distress at this time. call light is within reach. Bed is locked and in lowest position. Will continue to monitor pt and follow plan of care. pt may be transfer to [facility] today.
[2019-02-13 08:28] VITALS: BP 114/74
[2019-02-13] MEDS: Docusate 100mg cap ORAL SCH ×3 (10:21→20:15)
[2019-02-13] MEDS: Vitamin B12 1000mcg/ml Inj IM SCH (10:21)
[2019-02-13] MEDS: Magnesium Oxide 400mg tab ORAL SCH ×3 (10:34→20:15)
--- NOTE | 2019-02-13 11:37 | NUR ---
RD ASSESSMENT & RECOMMENDATIONS SEE CARE ACTIVITY FOR COMPLETE ASSESSMENT DAILY ESTIMATED NEEDS: Needs based on Cancer, diabetes, overweight ; 68kg adj 25-30 kcals/kg 1700- 2040 total kcals 1-1.5 g protein/kg 68- 102 g total protein 25-30 mL/kg 5323-8579 total fluid mLs NUTRITION DIAGNOSIS: Increased pro needs r/t cancer AEB pt w/ stage IV endometrial cancer w/ metastases to bones, liver, and diaphragm, pathologic right fibular fracture. CURRENT DIET:CCHO LOW PO DIET RECOMMENDATIONS: Maintain CCHO LOW/ add high pro snacks in b/w meals ADDITIONAL RECOMMENDATIONS: 1) Possible SENIOR CLINICAL DATA MANAGER eval for numbness in jaw. 2) Maintain calibrated bedscale wt. 3) F/up w/ bm's- last bm 02/08; bowel regimen 4) Monitor lytes, replete as needed 5) Adm w/ elev calcium (13.4); continuous monitoring- need for Ca restriction
[2019-02-13 12:00] VITALS: BP 112/82
--- NOTE | 2019-02-13 12:34 | Nephrology Progress Note ---
Assessment/Plan Problem List: (1) Hypercalcemia of malignancy (2) Hypomagnesemia (3) Metastatic cancer (4) Pathologic fracture (5) Diabetes mellitus type 2 in obese Assessment Hypercalcemia, due to bone mets Pathologic Fx DM II Abnormal Lytes Anemia HypoAlbuminemia Plan Hydrate Aredia total 90mg total given 02/09-02/10 Calcitonin nasal monitor Ca , Phos , Mag , K Iron panel noted IV lasix Mag IV and K supplement as needed Per orders Subjective ROS Limited/Unobtainable: No Constitutional: Reports: malaise Objective Objective Last 24 Hour Vital Signs Date Time Temp Pulse Resp B/P (MAP) Pulse Ox O2 Delivery O2 Flow Rate FiO2 02/13/19 08:28 97.5 88 20 114/74 (87) 98 02/13/19 08:00 89 02/13/19 04:00 76 02/13/19 04:00 98.3 78 18 108/57 (74) 98 02/13/19 00:00 78 02/13/19 00:00 97.7 79 18 107/55 (72) 98 02/12/19 21:00 Room Air 02/12/19 20:00 86 02/12/19 20:00 97.6 85 18 132/60 (84) 99 02/12/19 19:58 98.7 02/12/19 16:00 98.7 91 18 105/58 (74) 98 02/12/19 15:36 99 Intake and Output 02/12/19 02/13/19 19:00 07:00 Intake Total 240 ml 1560 ml Output Total 4400 ml Balance 240 ml -2840 ml Intake Oral 240 ml 760 ml IV Total 800 ml Output Urine Total 4400 ml Laboratory Tests 02/12/19 22:22: Urine HCG, Qualitative Negative 02/13/19 06:55: White Blood Count 3.7L, Red Blood Count 3.29L, Hemoglobin 10.2L, Hematocrit 30.5L, Mean Corpuscular Volume 93, Mean Corpuscular Hemoglobin 31.1H, Mean Corpuscular Hemoglobin Concent 33.6, Red Cell Distribution Width 12.1, Platelet Count 120L, Mean Platelet Volume 5.4L, Neutrophils (%) (Auto) 74.3, Lymphocytes (%) (Auto) 10.8L, Monocytes (%) (Auto) 10.3H, Eosinophils (%) (Auto) 2.7, Basophils (%) (Auto) 2.0, Sodium Level 137, Potassium Level 3.9, Chloride Level 100, Carbon Dioxide Level 28, Anion Gap 9, Blood Urea Nitrogen 16, Creatinine 0.7, Estimat Glomerular Filtration Rate > 60, Glucose Level 125H, Uric Acid 4.8 , Calcium Level 8.6, Phosphorus Level 2.3L, Magnesium Level 1.5L, Total Bilirubin 0.3, Aspartate Amino Transf (AST/SGOT) 48H, Alanine Aminotransferase ( ALT/SGPT) 27, Alkaline Phosphatase 109, C-Reactive Protein, Quantitative 4.9H, Pro-B-Type Natriuretic Peptide 144H, Total Protein 7.2, Albumin 2.6L, Globulin 4.6, Albumin/Globulin Ratio 0.6L Height (Feet): 5 Height (Inches): 7.00 Weight (Pounds): 188 General Appearance: no apparent distress Cardiovascular: normal rate Respiratory/Chest: decreased breath sounds Abdomen: soft, distended Objective no change Derick Polk MD Feb 13, 2019 12:34
--- NOTE | 2019-02-13 14:33 | NUR ---
*-* INSURANCE *-* ALL AVAILABLE CLINICALS HAVE BEEN FAXED TO: [facility] TRK# [id number] NO CM ASSIGNED YET #[phone] FAX#[phone] REVIEWS/CLINICALS Addendum: 02/13/19 at 1446 by JOSEFINA WILKES CM CALLED [facility] WAS ON HOLD FOR 30 MIN LVM TO CALL US BACK US BACKL TO CONFIRM CLINICALS HAVE BEEN RECEIVED.
--- NOTE | 2019-02-13 15:01 | Discharge Summary ---
Discharge Summary Hospital Course Date of Admission Feb 09, 2019 at 13:55 Date of Discharge 02/13/19 Admitting Diagnosis metastatic cancer HPI Elisa Navarro is a 43 year old female who was admitted on Feb 09, 2019 at 13: 55 for Metastatic Cancer Consultations Nephrology, hematology oncology Hospital Course This is a 43-year-old female with a past medical history of diabetes mellitus type 2, stage IV endometrial cancer with metastases to bones, liver, and diaphragm, pathologic right fibular fracture. Currently pending outpatient work -up for chemotherapy. The patient presents with worsening fatigue, and bone pain for the past week. She states that the pain is all over her body, 8 out of 10, constant. She also endorsed generalized weakness. She denied any recent illnesses, fever, chills, cough, shortness of breath. She denied any recent trauma to her right leg. Patient states that she saw orthopedic surgery this past Tuesday regarding the new pathologic fracture of her right fibula. He did not recommend any casting or nonweightbearing status. On admission the patient was afebrile with stable vital signs. The patient was found to have a calcium of 13.4, lactate 2.6. Serum creatinine 0.7, potassium 3.9. Troponin negative. Bilateral lower extremity venous Doppler negative for DVT. Chest x-ray negative. X-ray of tib-fib shows osteolytic lesion of proximal fibula likely a pathologic fracture. Admitted for hypercalcemia of malignancy. She was started on aggressive IV hydration and nephrology was consulted who recommended calcitonin intranasally and a total of 90mg Aredia. Calcium and lactate returned to normal with treatment. Initially generalized weakness but with treatment of calcium this did not improve and her lower extremity was weak. She did have sensation intact but diminished reflexes. MRI thoracic lumbar showed Multilevel metastatic disease involving the thoracic spine with compression deformities of T7 and T8 with retropulsion of the posterior margin of T8 into the spinal canal. There is tumor extension into the canal compressing the cord deviating the cord and deforming the cord. Patient was given dexamethasone IV 10 mg x 1 and continued on 4 mg IV q. Patient was transferred to [facility] for urgent surgical evaluation. Accepting neurosurgery was Dr. Gabrielle Arnett. Patient medically stable for transfer MRI C SPINE With Contrast: Skull based lesion measuring 2.6 x 2.9 cm involving the posterior ring of C1 there is mass effect on the thecal sac with evidence for epidural extension posteriorly. Abnormal enhancing mass involving the facets and right side of vertebral bodies at C34. This is however not completely evaluated on the sagittal images due to field of view choice. Enhancement extends into the right neural foramina raising the possibility of epidural extension. Posterior element and vertebral body involvement of C7 with epidural enhancing mass forming the thecal sac on the posterior left abnormal enhancement noted in the pedicle and facet of T2 and the vertebral body of T1. Enhancing mass demonstrated on the right third rib incompletely visualized Multiple lesions demonstrating enhancement and destruction of the cervical spine extending into the epidural space at multiple levels consistent with metastatic disease MRI L SPINE With Contrast: Disc bulge L5-S1 no significant canal effacement and mild neural foraminal effacement bilaterally. Examination normal marrow signal. Normal appearance the cauda equina. MRI T SPINE With Contrast: Multilevel metastatic disease involving the thoracic spine with compression deformities of T7 and T8 with retropulsion of the posterior margin of T8 into the spinal canal. There is tumor extension into the canal compressing the cord deviating the cord and deforming the cord. The spinal canal tumor extension measures approximately 3.2 cm craniocaudal from the bottom of T8 to the midportion of T6. No signal abnormalities noted in the cord substance on the sagittal images above and below the lesion. There is evidence of metastatic involvement of the vertebral bodies of T1 and T2 T5 T6, with a left costovertebral junction lesion at T 10 that measures 2.5 cm x 1.9 cm x 2.7 cm. Possible vertebral metastasis cannot be excluded in T11 or T12 Right third rib metastatic lesion is again noted measuring 2.1 cm AP by approximately 2.5 cm transverse) #Hypercalcemia of malignancy - improving -telemetry -Continue to trend calcium -Normal saline at 100 cc an hour with a goal urine output of 100 to 150 cc/h -Lasix - intranasal calcitonin daily -Appreciate nephrology consultation: Dr. Polk. S/p Aredia 90 mg total. - 02/10 -[place] 5 and [place] 10 for pain control Q6hr PRN, morphine IV Q3hr for breakthrough pain -Heme/onc consult with DR. Wells - [facility]'s [facility]-onc Dr. Fraga aware of patient's status #multilevel spinal metastasis with thoracic spinal cord compression #Lower extremity Weakness, acute. 2/2 cord compression > Has not improved with correction of calcium > CT Spine 02/12/19 - Apparent mass and lytic lesion involving the right posterior arch of C1. This is incompletely assessed on the current examination. > MRI findings as above - dexamethasone 10mg IV x 1 - dexamethasone 4mg IV Q6hr #Elevated lactic acid likely secondary to underlying malignancy - Resolved > Outside oncologist Dr. Mcclelland >PCP Dr. Fitzgerald -Continue to trend lactate -Continue to monitor for signs and symptoms of infection. None currently. -Continue fluids as above #Pathological right fibula fracture, chronic #LE weakness -Follows with orthopedic surgery as outpatient. Dr. Guy. -Obtain ortho consult as she is non weight baring now- placed consult in with DR. Ronquillo. f/u -pain control as above -Ordered physical therapy to evaluate #Hypomagnesemia -replete #Diabetes mellitus type 2 -hold home glipizide and metformin -Accu-Cheks before meals and at bedtime -Sliding scale insulin #Hypomagnesemia - mag oxide 400mg PO TID PHysical exam Vitals: Temperature 97.5 pulse 88 respirations 20 blood pressure 114/70 498% on room air General: WDWN female in NAD, A&O x 4 HEENT: Normocephalic cephalic atraumatic, pupils equal round reactive to light and accommodation, nares patent and no symmetrical, no tonsillar exudates, mucous membranes moist CV: Regular rate regular rhythm, no murmurs, rubs, or gallops Pulm: Lungs clear to auscultation bilaterally. No wheezes, rhonchi, or rales GI: Soft, nontender, nondistended, bowel sounds present Neuro: CN 2-12 intact bilaterally, 2/5 LE bialtearlly. Sensation intact to light touch bilaterally. Ext: No lower extremity edema bilaterally Skin: no rashes lesions or ulcers Msk: Joints symmetrical in upper extremity and lower extremity bilaterally, no joint swelling. Lymph: No lymphadenopathy in upper extremity and lower extremity Dispo: To [facility] Reason for Continued Hospitalization: Hypercalcemia, cord compression >30 minutes spent on this encounter. Discussed with RN, Patient, hematology/ oncology, and neurosurgery > 50% spent on counseling and care coordination. Time of note may not reflect time patient was seen. Discharge Condition Upon Discharge: other - guarded Discharge Disposition Patient was discharged to [facility] Discharge Diagnoses: (1) Cord compression (2) Spinal cord compression due to malignant neoplasm metastatic to spine (3) Lower extremity weakness (4) Pathologic fracture (5) Hypercalcemia (6) Elevated lactic acid level (7) Metastatic cancer (8) Hypomagnesemia (9) Hypercalcemia of malignancy (10) Diabetes mellitus type 2 in obese Steven Cantrell D.O. Feb 13, 2019 15:01
[2019-02-13] MEDS ORDERED: MORPHINE SU2 MG/1 M1 IVP (15:25)
[2019-02-13] MEDS ORDERED: PANTOPRAZOLE SO40 MG ORAL (15:25)
[2019-02-13] MEDS ORDERED: MAG-OX 400400 MG ORAL (15:25)
[2019-02-13] MEDS ORDERED: DECADRON IVP (15:25)
[2019-02-13] MEDS ORDERED: NORCO 5-325 TA1 EACH ORAL (15:25)
[2019-02-13] MEDS ORDERED: HYDROCODON-ACE1 EA13 ORAL (15:25)
[2019-02-13] MEDS ORDERED: COLACE100 MG ORAL (15:25)
--- NOTE | 2019-02-13 15:33 | General Progress Note ---
Assessment/Plan Problem List: (1) Hypercalcemia of malignancy ICD Codes: E83.52 - Hypercalcemia SNOMED: 45338248 (2) Hypercalcemia ICD Codes: E83.52 - Hypercalcemia SNOMED: 60775198 (3) Diabetes mellitus type 2 in obese ICD Codes: E11.69 - Type 2 diabetes mellitus with other specified complication ; E66.9 - Obesity, unspecified SNOMED: 77575258 (4) Metastatic cancer ICD Codes: C79.9 - Secondary malignant neoplasm of unspecified site SNOMED: 597620433 (5) Elevated lactic acid level ICD Codes: R79.89 - Other specified abnormal findings of blood chemistry SNOMED: 4783489 (6) Hypomagnesemia ICD Codes: E83.42 - Hypomagnesemia SNOMED: 630630132 (7) Pathologic fracture ICD Codes: M84.40XA - Pathological fracture, unspecified site, initial encounter for fracture SNOMED: 199967393 Qualifiers: Qualified Codes: M84.563K - Pathological fracture in neoplastic disease, right fibula, subsequent encounter for fracture with nonunion (8) Lower extremity weakness ICD Codes: R29.898 - Other symptoms and signs involving the musculoskeletal system SNOMED: 831505183 Status: stable, not improved, unchanged Assessment/Plan: This is a 43-year-old female with a past medical history of diabetes mellitus type 2, stage IV endometrial cancer with metastases to bones, liver, and diaphragm, pathologic right fibular fracture. Currently pending outpatient work -up for chemotherapy. The patient presents with worsening fatigue, and bone pain for the past week. She states that the pain is all over her body, 8 out of 10, constant. She also endorsed generalized weakness. She denied any recent illnesses, fever, chills, cough, shortness of breath. She denied any recent trauma to her right leg. Patient states that she saw orthopedic surgery this past Tuesday regarding the new pathologic fracture of her right fibula. He did not recommend any casting or nonweightbearing status. On admission the patient was afebrile with stable vital signs. The patient was found to have a calcium of 13.4, lactate 2.6. Serum creatinine 0.7, potassium 3.9. Troponin negative. Bilateral lower extremity venous Doppler negative for DVT. Chest x-ray negative. X-ray of tib-fib shows osteolytic lesion of proximal fibula likely a pathologic fracture. Admitted for hypercalcemia of malignancy. She was started on aggressive IV hydration and nephrology was consulted who recommended calcitonin intranasally and a total of 90mg Aredia. Calcium and lactate returned to normal with treatment. Initially generalized weakness but with treatment of calcium this did not improve and her lower extremity was weak. She did have sensation intact but diminished reflexes. MRI thoracic lumbar showed Multilevel metastatic disease involving the thoracic spine with compression deformities of T7 and T8 with retropulsion of the posterior margin of T8 into the spinal canal. There is tumor extension into the canal compressing the cord deviating the cord and deforming the cord. Patient was given dexamethasone IV 10 mg x 1 and continued on 4 mg IV q. Patient was transferred to [facility] for urgent surgical evaluation. Accepting neurosurgery was Dr. Gabrielle Arnett. Patient medically stable for transfer MRI C SPINE With Contrast: Skull based lesion measuring 2.6 x 2.9 cm involving the posterior ring of C1 there is mass effect on the thecal sac with evidence for epidural extension posteriorly. Abnormal enhancing mass involving the facets and right side of vertebral bodies at C34. This is however not completely evaluated on the sagittal images due to field of view choice. Enhancement extends into the right neural foramina raising the possibility of epidural extension. Posterior element and vertebral body involvement of C7 with epidural enhancing mass forming the thecal sac on the posterior left abnormal enhancement noted in the pedicle and facet of T2 and the vertebral body of T1. Enhancing mass demonstrated on the right third rib incompletely visualized Multiple lesions demonstrating enhancement and destruction of the cervical spine extending into the epidural space at multiple levels consistent with metastatic disease MRI L SPINE With Contrast: Disc bulge L5-S1 no significant canal effacement and mild neural foraminal effacement bilaterally. Examination normal marrow signal. Normal appearance the cauda equina. MRI T SPINE With Contrast: Multilevel metastatic disease involving the thoracic spine with compression deformities of T7 and T8 with retropulsion of the posterior margin of T8 into the spinal canal. There is tumor extension into the canal compressing the cord deviating the cord and deforming the cord. The spinal canal tumor extension measures approximately 3.2 cm craniocaudal from the bottom of T8 to the midportion of T6. No signal abnormalities noted in the cord substance on the sagittal images above and below the lesion. There is evidence of metastatic involvement of the vertebral bodies of T1 and T2 T5 T6, with a left costovertebral junction lesion at T 10 that measures 2.5 cm x 1.9 cm x 2.7 cm. Possible vertebral metastasis cannot be excluded in T11 or T12 Right third rib metastatic lesion is again noted measuring 2.1 cm AP by approximately 2.5 cm transverse) #Hypercalcemia of malignancy - improving -telemetry -Continue to trend calcium -Normal saline at 100 cc an hour with a goal urine output of 100 to 150 cc/h -Lasix - intranasal calcitonin daily -Appreciate nephrology consultation: Dr. Polk. S/p Aredia 90 mg total. - 02/10 -[place] 5 and [place] 10 for pain control Q6hr PRN, morphine IV Q3hr for breakthrough pain -Heme/onc consult with DR. Wells - patient's ob/gyn-onc Dr. Fraga aware of patient's status #multilevel spinal metastasis with thoracic spinal cord compression #Lower extremity Weakness, acute. 2/2 cord compression > Has not improved with correction of calcium > CT Spine 02/12/19 - Apparent mass and lytic lesion involving the right posterior arch of C1. This is incompletely assessed on the current examination. > MRI findings as above - dexamethasone 10mg IV x 1 - dexamethasone 4mg IV Q6hr #Elevated lactic acid likely secondary to underlying malignancy - Resolved > Outside oncologist Dr. Mcclelland >PCP Dr. Fitzgerald -Continue to trend lactate -Continue to monitor for signs and symptoms of infection. None currently. -Continue fluids as above #Pathological right fibula fracture, chronic #LE weakness -Follows with orthopedic surgery as outpatient. Dr. Guy. -Obtain ortho consult as she is non weight baring now- placed consult in with DR. Ronquillo. f/u -pain control as above -Ordered physical therapy to evaluate #Hypomagnesemia -replete #Diabetes mellitus type 2 -hold home glipizide and metformin -Accu-Cheks before meals and at bedtime -Sliding scale insulin #Hypomagnesemia - mag oxide 400mg PO TID PHysical exam Vitals: Temperature 97.5 pulse 88 respirations 20 blood pressure 114/70 498% on room air General: WDWN female in NAD, A&O x 4 HEENT: Normocephalic cephalic atraumatic, pupils equal round reactive to light and accommodation, nares patent and no symmetrical, no tonsillar exudates, mucous membranes moist CV: Regular rate regular rhythm, no murmurs, rubs, or gallops Pulm: Lungs clear to auscultation bilaterally. No wheezes, rhonchi, or rales GI: Soft, nontender, nondistended, bowel sounds present Neuro: CN 2-12 intact bilaterally, 2/5 LE bialtearlly. Sensation intact to light touch bilaterally. Ext: No lower extremity edema bilaterally Skin: no rashes lesions or ulcers Msk: Joints symmetrical in upper extremity and lower extremity bilaterally, no joint swelling. Lymph: No lymphadenopathy in upper extremity and lower extremity Dispo: To [facility] Reason for Continued Hospitalization: Hypercalcemia, cord compression >30 minutes spent on this encounter. Discussed with RN, Patient, hematology/ oncology, and neurosurgery > 50% spent on counseling and care coordination. Time of note may not reflect time patient was seen. Subjective Allergies: Coded Allergies: No Known Allergies (Unverified , 02/09/19) Subjective No acute events overnight per nursing. Patient continues to complain of right leg pain, constant, sharp, 5 out of 10. Unable to move both of her legs bilaterally. Has sensation intact. No headaches, nausea, or vomiting. No other complaints Objective Last 24 Hour Vital Signs Date Time Temp Pulse Resp B/P (MAP) Pulse Ox O2 Delivery O2 Flow Rate FiO2 02/13/19 12:00 80 02/13/19 09:00 Room Air 02/13/19 08:28 97.5 88 20 114/74 (87) 98 02/13/19 08:00 89 02/13/19 04:00 76 02/13/19 04:00 98.3 78 18 108/57 (74) 98 02/13/19 00:00 78 02/13/19 00:00 97.7 79 18 107/55 (72) 98 02/12/19 21:00 Room Air 02/12/19 20:00 86 02/12/19 20:00 97.6 85 18 132/60 (84) 99 02/12/19 19:58 98.7 02/12/19 16:00 98.7 91 18 105/58 (74) 98 02/12/19 15:36 99 Intake and Output 02/12/19 02/13/19 19:00 07:00 Intake Total 240 ml 1560 ml Output Total 4400 ml Balance 240 ml -2840 ml Intake Oral 240 ml 760 ml IV Total 800 ml Output Urine Total 4400 ml Laboratory Tests 02/12/19 22:22: Urine HCG, Qualitative Negative 02/13/19 06:55: White Blood Count 3.7L, Red Blood Count 3.29L, Hemoglobin 10.2L, Hematocrit 30.5L, Mean Corpuscular Volume 93, Mean Corpuscular Hemoglobin 31.1H, Mean Corpuscular Hemoglobin Concent 33.6, Red Cell Distribution Width 12.1, Platelet Count 120L, Mean Platelet Volume 5.4L, Neutrophils (%) (Auto) 74.3, Lymphocytes (%) (Auto) 10.8L, Monocytes (%) (Auto) 10.3H, Eosinophils (%) (Auto) 2.7, Basophils (%) (Auto) 2.0, Sodium Level 137, Potassium Level 3.9, Chloride Level 100, Carbon Dioxide Level 28, Anion Gap 9, Blood Urea Nitrogen 16, Creatinine 0.7, Estimat Glomerular Filtration Rate > 60, Glucose Level 125H, Uric Acid 4.8 , Calcium Level 8.6, Phosphorus Level 2.3L, Magnesium Level 1.5L, Total Bilirubin 0.3, Aspartate Amino Transf (AST/SGOT) 48H, Alanine Aminotransferase ( ALT/SGPT) 27, Alkaline Phosphatase 109, C-Reactive Protein, Quantitative 4.9H, Pro-B-Type Natriuretic Peptide 144H, Total Protein 7.2, Albumin 2.6L, Globulin 4.6, Albumin/Globulin Ratio 0.6L Height (Feet): 5 Height (Inches): 7.00 Weight (Pounds): 188 Steven Cantrell D.O. Feb 13, 2019 15:33
[2019-02-13 16:00] VITALS: BP 118/60
[2019-02-13] MEDS: Dexamethasone 4mg/ml vial IVP SCH ×2 (16:37→20:52)
--- NOTE | 2019-02-13 17:00 | Hematology/Onc Progress Note ---
Assessment/Plan Assessment/Plan PE: Vitals: reviewed General Appearance: NAD HEENT: normocephalic, atraumatic Neck: non-tender, normal alignment Respiratory/Chest: normal breath sounds bilaterally Cardiovascular/Chest: normal peripheral pulses, normal rate Abdomen: normal bowel sounds, soft, nontender Extremities: normal range of motion ++ ttp on right lat leg Assessment/Plan: # Stage IV endometrial cancer presenting with hypercalcemia of malignancy. BRCA --, with recurrence of disease --> recommend continued f/u with Dr. Fraga at [facility] --> was to continue on rx, had a history of endometrial ca s/p hysterectomy and now with reucrrence, with involvement of skeletal mets, and is to get chemotherapy+radiation in the near future --> recommend ortho eval --> ca125 is only 8.2 --> MRI of the c and t spine showed "Skull based lesion measuring 2.6 x 2.9 cm involving the posterior ring of C1 there is mass effect on the thecal sac with evidence for epidural extension posteriorly. Abnormal enhancing mass involving the facets and right side of vertebral bodies at C34. Enhancement extends into the right neural foramina raising the possibility of epidural extension. Multiple lesions demonstrating enhancement and destruction of the cervical spine extending into the epidural space at multiple levels consistent with metastatic disease" --> recommend stat neurosurgery eval for steriods and/or higher level of care ( have discussed with pcp) # Hypercalcemia of malignancy --> Continue to trend calcium 11-->12-->9 --> NS started as per renal --> intranasal calcitonin daily --> per renal recs --> pamidronate as needed prn # Pancytopenia due to underlying chronic medical issues, multifactorial due to malignancy --> Anemia workup has been ordered, rule out gi bleed --> No evidence of hemolysis is noted, peripheral smear has been reviewed. --> Hgb goal >7. Transfuse prn. --> Epogen or iron at this time is not particularly indicated --> Medications have been reviewed --> low threshold for gi evaluation in case has occult + --> Hep panel and HIV neg --> Peripheral smear ordered to evaluate for blasts /schistocytes and none noted --> abx and other meds have been reviewed --> ok for ppx if plt >50k w/ either heparin or lovenox # Elevated lactic acid likely secondary to underlying malignancy --> PCP Dr. Fitzgerald --> Continue to trend lactate --> consider abx if any evidence of infection # Pathological right fibula fracture, chronic --> Follows with orthopedic surgery as outpatient --> pain control as above --> may need ortho inhouse # Hypomagnesemia --> per renal # Diabetes mellitus type 2 # DVTPPX: heparin sbq The timing of this note does not necessarily reflect the time of the patient was seen. Greatly appreciate consultation. Subjective Constitutional: Denies: no symptoms, chills, fever, malaise, weakness, other HEENT: Denies: no symptoms, eye pain, blurred vision, tearing, double vision, ear pain, ear discharge, nose pain, nose congestion, throat pain, throat swelling, mouth pain, mouth swelling, other Respiratory: Denies: no symptoms, cough, shortness of breath, SOB with excertion, SOB at rest, sputum, wheezing, other Gastrointestinal/Abdominal: Denies: no symptoms, abdomen distended, abdominal pain, black stools, tarry stools, blood in stool, constipated, diarrhea, difficulty swallowing, nausea, poor appetite, poor fluid intake, rectal bleeding , vomiting, other Neurologic/Psychiatric: Denies: no symptoms, anxiety, depressed, emotional problems, headache, numbness, paresthesia, pre-existing deficit, seizure, tingling, tremors, weakness, other Endocrine: Denies: no symptoms, excessive sweating, flushing, intolerance to cold, intolerance to heat, increased hunger, increased thirst, increased urine, unexplained weight gain, unexplained weight loss, other Allergies: Coded Allergies: No Known Allergies (Unverified , 02/09/19) Subjective 02/13: continues to have lower ext weakness, reviewed mri and showed c and t spine involvement Objective Objective Current Medications Medications (Trade) Dose Ordered Sig/García Route PRN Reason Start Time Stop Time Status Last Admin Dose Admin Acetaminophen (Tylenol) 650 mg Q4H PRN ORAL Mild Pain (Pain Scale 1-3) 02/10/19 17:30 03/12/19 17:29 02/11/19 15:23 Acetaminophen/ Hydrocodone Bitart (Kelliher ) 1 tab Q6H PRN ORAL severe pain 02/09/19 19:00 02/16/19 18:59 02/12/19 19:24 Acetaminophen/ Hydrocodone Bitart (Kelliher 5/325) 1 tab Q6H PRN ORAL pain 1-6 02/09/19 19:00 02/16/19 18:59 02/13/19 10:34 Cyanocobalamin (Vitamin B12) 1,000 mcg DAILY IM 02/11/19 11:00 03/13/19 10:59 02/13/19 10:21 Dexamethasone Sodium Phosphate (Decadron 4mg/ml vial) 4 mg Q6H IVP 02/13/19 14:00 03/15/19 13:59 02/13/19 16:37 Dextrose (Dextrose 50%) 25 ml Q30M PRN IV Hypoglycemia 02/09/19 19:00 03/11/19 17:29 Dextrose (Dextrose 50%) 50 ml Q30M PRN IV Hypoglycemia 02/09/19 19:00 03/11/19 17:29 Docusate Sodium (Colace) 100 mg TID ORAL 02/10/19 13:00 03/12/19 12:59 02/13/19 14:03 Gadobutrol (Gadavist) 7.5 mmol NOW PRN IV Radiology Procedure 02/12/19 14:30 02/16/19 14:24 Gadobutrol (Gadavist) 7.5 mmol NOW PRN IV Radiology Procedure 02/12/19 14:30 02/16/19 14:24 Gadobutrol (Gadavist) 7.5 mmol NOW PRN IV Radiology Procedure 02/12/19 14:30 02/16/19 14:24 Heparin Sodium (Porcine) (Heparin 5000 units/ml) 5,000 units EVERY 8 HOURS SUBQ 02/10/19 22:00 03/11/19 21:59 02/13/19 16:39 Insulin Aspart (NovoLOG) BEFORE MEALS AND HS SUBQ 02/10/19 11:30 03/12/19 11:29 02/13/19 14:06 Magnesium Oxide (Mag-Ox 400mg) 400 mg THREE TIMES A DAY ORAL 02/12/19 13:00 03/14/19 12:59 02/13/19 14:03 Morphine Sulfate (Morphine Sulfate) 2 mg Q4H PRN IVP breakthrough pain 02/09/19 19:15 02/16/19 19:14 02/12/19 05:29 Ondansetron HCl (Zofran) 4 mg Q4H PRN IVP Nausea & Vomiting 02/10/19 17:30 03/12/19 17:29 02/10/19 17:49 Pantoprazole (Protonix) 40 mg Q12H ORAL 02/12/19 20:00 03/14/19 19:59 02/13/19 10:21 Potassium Chloride (K-Dur) 40 meq DAILY ORAL 02/14/19 09:00 03/12/19 09:29 Sodium Chloride 1,000 ml @ 50 mls/hr Q20H IV 02/13/19 10:00 03/13/19 09:59 Last 24 Hour Vital Signs Date Time Temp Pulse Resp B/P (MAP) Pulse Ox O2 Delivery O2 Flow Rate FiO2 02/13/19 12:00 80 02/13/19 09:00 Room Air 02/13/19 08:28 97.5 88 20 114/74 (87) 98 02/13/19 08:00 89 02/13/19 04:00 76 02/13/19 04:00 98.3 78 18 108/57 (74) 98 02/13/19 00:00 78 02/13/19 00:00 97.7 79 18 107/55 (72) 98 02/12/19 21:00 Room Air 02/12/19 20:00 86 02/12/19 20:00 97.6 85 18 132/60 (84) 99 02/12/19 19:58 98.7 02/12/19 16:00 98.7 91 18 105/58 (74) 98 02/12/19 15:36 99 02/12/19 12:00 98.6 81 20 128/68 (88) 97 02/12/19 12:00 96 02/12/19 09:00 Room Air 02/12/19 08:28 98.9 101 18 129/75 (93) 96 02/12/19 08:00 81 02/12/19 04:00 82 02/12/19 04:00 97.5 85 18 118/65 (82) 96 02/12/19 00:00 97.7 79 18 106/67 (80) 97 02/12/19 00:00 80 02/11/19 21:00 Room Air 10/27/19 20:00 97.5 97 18 110/66 (81) 97 02/11/19 20:00 84 Intake and Output 02/12/19 02/13/19 19:00 07:00 Intake Total 240 ml 1560 ml Output Total 4400 ml Balance 240 ml -2840 ml Intake Oral 240 ml 760 ml IV Total 800 ml Output Urine Total 4400 ml Labs Test 02/11/19 06:25 02/12/19 06:35 02/12/19 22:22 02/13/19 06:55 White Blood Count 5.0 K/UL (4.8-10.8) 4.0 K/UL (4.8-10.8) 3.7 K/UL (4.8-10.8) Red Blood Count 2.97 M/UL (4.20-5.40) 3.13 M/UL (4.20-5.40) 3.29 M/UL (4.20-5.40) Hemoglobin 9.3 G/DL (12.0-16.0) 9.9 G/DL (12.0-16.0) 10.2 G/DL (12.0-16.0) Hematocrit 27.3 % (37.0-47.0) 28.2 % (37.0-47.0) 30.5 % (37.0-47.0) Mean Corpuscular Volume 92 FL (80-99) 90 FL (80-99) 93 FL (80-99) Mean Corpuscular Hemoglobin 31.3 PG (27.0-31.0) 31.5 PG (27.0-31.0) 31.1 PG (27.0-31.0) Mean Corpuscular Hemoglobin Concent 34.0 G/DL (32.0-36.0) 35.1 G/DL (32.0-36.0) 33.6 G/DL (32.0-36.0) Red Cell Distribution Width 11.8 % (11.6-14.8) 11.8 % (11.6-14.8) 12.1 % (11.6-14.8) Platelet Count 110 K/UL (150-450) 110 K/UL (150-450) 120 K/UL (150-450) Mean Platelet Volume 5.4 FL (6.5-10.1) 5.6 FL (6.5-10.1) 5.4 FL (6.5-10.1) Neutrophils (%) (Auto) % (45.0-75.0) 79.3 % (45.0-75.0) 74.3 % (45.0-75.0) Lymphocytes (%) (Auto) % (20.0-45.0) 5.4 % (20.0-45.0) 10.8 % (20.0-45.0) Monocytes (%) (Auto) % (1.0-10.0) 11.8 % (1.0-10.0) 10.3 % (1.0-10.0) Eosinophils (%) (Auto) % (0.0-3.0) 1.8 % (0.0-3.0) 2.7 % (0.0-3.0) Basophils (%) (Auto) % (0.0-2.0) 1.8 % (0.0-2.0) 2.0 % (0.0-2.0) Differential Total Cells Counted 100 Neutrophils % (Manual) 90 % (45-75) Lymphocytes % (Manual) 3 % (20-45) Monocytes % (Manual) 5 % (1-10) Eosinophils % (Manual) 1 % (0-3) Basophils % (Manual) 1 % (0-2) Band Neutrophils 0 % (0-8) Platelet Estimate Decreased Platelet Morphology Normal Hypochromasia 2+ Anisocytosis 1+ Sodium Level 136 MMOL/L (136-145) 135 MMOL/L (136-145) 137 MMOL/L (136-145) Potassium Level 3.4 MMOL/L (3.5-5.1) 3.8 MMOL/L (3.5-5.1) 3.9 MMOL/L (3.5-5.1) Chloride Level 98 MMOL/L (98-107) 97 MMOL/L (98-107) 100 MMOL/L (98-107) Carbon Dioxide Level 28 MMOL/L (21-32) 30 MMOL/L (21-32) 28 MMOL/L (21-32) Anion Gap 10 mmol/L (5-15) 8 mmol/L (5-15) 9 mmol/L (5-15) Blood Urea Nitrogen 11 mg/dL (7-18) 14 mg/dL (7-18) 16 mg/dL (7-18) Creatinine 0.6 MG/DL (0.55-1.30) 0.6 MG/DL (0.55-1.30) 0.7 MG/DL (0.55-1.30) Estimat Glomerular Filtration Rate > 60 mL/min (>60) > 60 mL/min (>60) > 60 mL/min (>60) Glucose Level 116 MG/DL (74-106) 125 MG/DL (74-106) 125 MG/DL (74-106) Lactic Acid Level 1.10 mmol/L (0.4-2.0) Uric Acid 5.6 MG/DL (2.6-7.2) 4.8 MG/DL (2.6-7.2) Calcium Level 11.6 MG/DL (8.5-10.1) 9.6 MG/DL (8.5-10.1) 8.6 MG/DL (8.5-10.1) Phosphorus Level 3.1 MG/DL (2.5-4.9) 3.1 MG/DL (2.5-4.9) 2.3 MG/DL (2.5-4.9) Magnesium Level 1.0 MG/DL (1.8-2.4) 1.3 MG/DL (1.8-2.4) 1.5 MG/DL (1.8-2.4) Iron Level 42 ug/dL (50-175) Total Iron Binding Capacity 226 ug/dL (250-450) Percent Iron Saturation 19 % (15-50) Unsaturated Iron Binding 184 ug/dL (112-346) Ferritin 337 NG/ML (8-388) Total Bilirubin 0.3 MG/DL (0.2-1.0) 0.3 MG/DL (0.2-1.0) 0.3 MG/DL (0.2-1.0) Gamma Glutamyl Transpeptidase 47 U/L (5-85) Aspartate Amino Transf (AST/SGOT) 40 U/L (15-37) 52 U/L (15-37) 48 U/L (15-37) Alanine Aminotransferase (ALT/SGPT) 18 U/L (12-78) 21 U/L (12-78) 27 U/L (12-78) Alkaline Phosphatase 89 U/L (46-116) 99 U/L (46-116) 109 U/L (46-116) Total Creatine Kinase 72 U/L (26-308) C-Reactive Protein, Quantitative 4.8 mg/dL (0.00-0.90) 4.9 mg/dL (0.00-0.90) Pro-B-Type Natriuretic Peptide 225 pg/mL (0-125) 144 pg/mL (0-125) Total Protein 6.6 G/DL (6.4-8.2) 6.9 G/DL (6.4-8.2) 7.2 G/DL (6.4-8.2) Albumin 2.5 G/DL (3.4-5.0) 2.6 G/DL (3.4-5.0) 2.6 G/DL (3.4-5.0) Globulin 4.1 g/dL 4.3 g/dL 4.6 g/dL Albumin/Globulin Ratio 0.6 (1.0-2.7) 0.6 (1.0-2.7) 0.6 (1.0-2.7) Vitamin B12 Level 436 PG/ML (193-986) Folate 16.6 NG/ML (8.6-58.9) Urine HCG, Qualitative Negative (NEGATIVE) Height (Feet): 5 Height (Inches): 7.00 Weight (Pounds): 188 Robbi Gallardo MD Feb 13, 2019 17:00
--- NOTE | 2019-02-13 17:02 | Cardiology Report ---
APPROVED REPORT EKG Measurement Heart [id number] ND [id number] Normal sinus rhythm Cannot rule out Anterior infarct, age undetermined Abnormal ECG
--- NOTE | 2019-02-13 18:57 | NUR ---
NURSE NOTES: per - pt ok to be transfer to [facility] for further treatment. Pt is ok to be transferred. ,
--- NOTE | 2019-02-13 19:35 | NUR ---
NURSE NOTES: [facility] called to give report, pt to be transfered to (8s bed 48 ICU per Oxana mohr to arrange transfer, we must send images on a CD as well as a copy of the medical chart and med list. Call transfer center at [phone].
--- NOTE | 2019-02-13 19:35 | NUR ---
NURSE NOTES: Received patient from [facility]CTEZU[facility]. Patient in bed, awake, alert and oriented x3, room air, no signs of respiratory distress. Cuadra catheter intact. Right forearm 22 gauge iv intact, patent with NS infusing at 50ml/hr.
--- NOTE | 2019-02-13 19:45 | NUR ---
HAND-OFF: Endorsed all transferring requirement and arrangements to [facility]/ JOSE ELIAS
[2019-02-13 20:00] VITALS: BP 121/57
[2019-02-13] MEDS: HYDROcodone/Acetamin 10/325 tab ORAL PRN (20:53)
--- NOTE | 2019-02-13 21:00 | NUR ---
NURSE NOTES: Based on the MAR, 8 units of novolog was already given at 2014. Will hold off on HS insulin.
[2019-02-14] VITALS: BP 117/50
[2019-02-14] MEDS: NovoLOG Insulin Flexpen SUBQ SCH (00:01)
--- NOTE | 2019-02-14 00:05 | NUR ---
NURSE NOTES: Blood sugar 225, administered 4 units novolog that was supposed to be given at 2100.
--- NOTE | 2019-02-14 00:45 | NUR ---
NURSE NOTES: [facility] arrived to transport patient to [facility], 8S bed 48. manager monitoring off, belongings list signed.
--- NOTE | 2019-02-14 15:20 | NUR ---
*-* INSURANCE *-* ALL AVAILABLE CLINICALS HAVE BEEN FAXED TO: [facility] TRK# [id number] NO CM ASSIGNED YET #[phone] FAX#[phone] REVIEWS/CLINICALS
--- NOTE | 2019-02-14 15:22 | NUR ---
*-* INSURANCE *-* ALL AVAILABLE CLINICALS + DISCHARGE SUMMARY HAVE BEEN FAXED TO: [email or web address] TRK# [id number] NO CM ASSIGNED YET #[phone] FAX#[phone] REVIEWS/CLINICALS Addendum: 02/14/19 at 1526 by JOSEFINA WILKES CM CALLED [employer] AND SPOKE TO LÓPEZ SHE STATED CLINICALS HAVE BEEN RECEIVED
== END 2019-02-14 00:43 | disposition designated cancer center or children's hospital, planned readmission (85) | DRG 543 ==
LOC: EDBD 11:27 → EMR 13:05 → 4E 13:55 → EDBEDREQ 15:46 → 2E 18:45
DX: C79.51 Secondary malignant neoplasm of bone (principal); G95.29 Other cord compression; E87.2 Acidosis; M84.463A Pathological fracture, right fibula, initial encounter for fracture; C78.7 Secondary malignant neoplasm of liver and intrahepatic bile duct; C79.89 Secondary malignant neoplasm of other specified sites; D61.818 Other pancytopenia; G54.9 Nerve root and plexus disorder, unspecified; E83.52 Hypercalcemia; E83.42 Hypomagnesemia; E11.9 Type 2 diabetes mellitus without complications; Z79.84 Long term (current) use of oral hypoglycemic drugs; C54.1 Malignant neoplasm of endometrium; E66.9 Obesity, unspecified; D63.8 Anemia in other chronic diseases classified elsewhere; D69.6 Thrombocytopenia, unspecified
CPT/HCPCS: 36415; 70450; 71045; 72142; 72147; 72149; 80048; 80053; 81003; 81025; 82330; 82550; 82607; 82728; 82746; 82962; 82977; 83036; 83540; 83550; 83605; 83690; 83735; 83880; 84100; 84443; 84484; 84550; 85007; 85025; 85610; 85651; 85730; 86140; 86304; 86703; 86705; 86709; 86803; 86850; 86900; 86901; 87040; 87340; 93005; 93970; 96361; 96374; 96375; 99285; A9585; C9399; J1815; J2405; J2430; J7030; J8499